=== PATIENT | female | born 2000 | race Caucasian/White ===

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

== ENCOUNTER 2023-04-07 14:16 | Inpatient (IN) ==
[2023-04-07 15:19] LABS: Alanine Aminotransferase 8 U/L (7-52); Albumin Globulin Ratio 1.1 (0.9-2); Albumin Level 3.1 gm/dl (3.4-5.0); Alkaline Phosphatase 212 U/L (34-104); Anion Gap 8 (3-11); Aspartate Aminotransferase 13 U/L (13-39); Bilirubin,Total 0.3 mg/dl (0.2-1.0); Blood Urea Nitrogen 6 mg/dl (6-23); Carbon Dioxide 21 mmol/L (21-32); Chloride 107 mmol/L (98-107); Est GFR (African American) > 150.0 ml/min; Est GFR (Non-African American) 143.2 ml/min; Globulin 2.9 gm/dl (2.5-4.0); Glucose 79 mg/dl (70-99(Fasting)); Potassium 3.6 mmol/L (3.5-5.1); Sodium 136 mmol/L (136-145)
[2023-04-07 15:24] LABS: Creatinine Urine Random 13.3 mg/dl; Protein Creatinine Ratio Urine 0.4 (0-0.2); Total Protein Urine Random 5.3 mg/dl (0-11.9)
[2023-04-07 15:46] LABS: Hematocrit (blood only) 29.4 % (37.0-47.0); Hemoglobin 9.4 g/dl (12.0-16.0); Mean Corpuscular Hemoglobin 26.4 pg (25.0-34.0); Mean Corpuscular Volume 82.6 fL (80.0-100.0); Mean Platelet Volume 9.9 fL (9.4-12.4); Platelet Count 331 K/uL (130-400); RDW Standard Deviation 45.6 fL (36.4-46.3); Red Blood Count 3.56 M/uL (4.20-5.40); White Blood Count 11.99 K/ul (4.8-10.8)
[2023-04-07] MEDS ORDERED: LIDOCAINE 1% LOCAL 20 ML VIAL INFIL PRN (17:35)
[2023-04-07] MEDS ORDERED: OXYTOCIN 30 UNITS/NSS 30 UNITS/500 ML BAG IV PRN (17:35)
--- NOTE | 2023-04-07 17:39 | History & Physical Report ---
Date of Service April 07, 2023 Assessment & Plan (1) Gestational diabetes mellitus (GDM) affecting , antepartum: (2) Preeclampsia: (3) with 37 weeks completed gestation: Plan Patient has demonstarted elevated blood pressure in the mild range and have sustained over 4 hours. She has a p/c ratio of 0.4. This allows me to give her a diagnosis of preeclampsia. Given that she is over 37 weeks, the recommendation is delivery as the risk of prematurity is outweighed by the risk of worsening disease/ecclampsia. Explained the situation to the patient and her support person who express understanding of the situation and plan. Given an unfavorable cervix. A cisse bulb was placed for cervical ripening and plan to start pitocin at around midnight. Fetus is category one. History of Present Illness Chief Complaint: elevated blood pressure Primary Care Provider: NO PCP Patient is a 22yowf with iup at 37 4/7 weeks . She presented to the office today without complaints. INitial blood pressure was 156/88 with a repeat in 10 min of 162/88. Was sent to labor and delivery for bp monitoring. INitial blood pressure here was 150s/90s. Labs all normal except pro/rn provider relations ratio of 0.4. She denies any s/s of pet. Notes no contractions/lof/vb. Notes good fm. Patient did have an elevated blood pressure on 03/06 of 144/86. During observation, she had an isolated blood pressure of 170/95 but mostly in the 140s/90s. complications as below. Of note, she was in the IUGR protocol when she had diagnosis of iugr made on a growth ultrasound done for a new diagnosis of GDM--efw 5% and AC 8%. This was at 30 weeks on 02/19. She remained in the protocol until ultrasound done 03/17 showed efw 11%, AC 30%. this was at 34 4/7 weeks. She had another dvp that was normal the following week. Her next growth us for GDM would have been at 38 weeks. and Delivery Plans Current every day Vaping Abnormal Anatomy US - mild to moderate dilation of proximal to mid ascending aorta *MFM consult (01/05/23 @ [facility] [place]) - rec echo - per peds cardio: OK for delivery at [facility] - peds cardio followup within first 2w of life *Growth US Q 4 wks, *Weekly NST's in 3rd trimester GDM w/28wk glucola *Begin monthly Growth US's IUGR - resolved at 34 wks *Twice weekly NST/DVP@Dx *Weeklyl doppler@Dx *Growth US Q4wk @Dx *Deliver [id number] (unless abnml flow) *Deliver 37wks (less than 3rd%) OB Labs: Blood Type O Positive 09/19/22 Antibody Screen NEGATIVE 09/19/22 Hemoglobin 9.2 g/dl (12.0-16.0) L 04/01/23 Hematocrit 28.5 % (37.0-47.0) L 04/01/23 Mean Corpuscular Volume 84.1 fL (80.0-100.0) 04/01/23 Platelet Count 296 K/uL (130-400) 04/01/23 Rubella IgG Antibody Non Immune (Immune) L 09/19/22 Rapid Plasma Reagin Nonreactive (Nonreactive) 09/19/22 Hepatitis B Surface Antigen. NON-REACTIVE (NON-REACTIVE) 09/19/22 Hepatitis C Antibody (EIA) NON-REACTIVE (NON-REACTIVE) 09/19/22 HIV (1&2) Ag and Ab Confirmation NON-REACTIVE (NON-REACTIVE) 09/19/22 Glucose 1 Hour 50 gm Load 163 mg/dl (70-130) H 02/05/23 OB Optional Labs: Chlamydia trachomatis RNA Not Detected (NotDetected) 09/19/22 Neisseria gonorrhoeae RNA Not Detected (NotDetected) 09/19/22 Thyroid Stimulating Hormone (TSH) 1.020 uIu/ml (0.510-4.91) 01/24/20 Labs Reviewed: cfdna-low risk--mln GBS pending and done today. Allergies Allergy/AdvReac Type Severity Reaction Status Date / Time No Known Drug Allergies Allergy Unknown Verified 04/07/23 13:13 Home Medications Medication Instructions Recorded Confirmed Type 21-iron fu-folic acid 1 tab PO DAILY 09/10/22 04/07/23 History [ Complete] acetone (urine) test (Ketone Urine #50 ea 02/19/23 04/07/23 Rx Test strips) blood sugar diagnostic (Imagine HealthTouch #150 ea 02/19/23 04/07/23 Rx Verio test strips) blood-glucose meter (OneTouch #1 ea 02/19/23 04/07/23 Rx Verio Reflect Meter) lancets 33 gauge #150 ea 02/19/23 04/07/23 Rx Patient History Medical History (Updated 04/07/23 @ 17:51 by Rupinder Pearce MD, FACOG) Menometrorrhagia Varicella vaccination Temporomandibular joint disorder Left side popping occasionally (states they removed her wisdom teeth thinking it would help- mild improvement per pt) ADD (attention deficit disorder) no meds History of obesity Amblyopia Anxiety no meds Astigmatism Surgical History History of dilatation and curettage History of wisdom tooth extraction Family History Sister Attention deficit hyperactivity disorder Mother Hypothyroidism Attention deficit hyperactivity disorder Grandmother Diabetes Father Hypertension Aunt Breast cancer maternal Grandmother (Paternal) Pure hypercholesterolemia Hypertension Other No family history of adverse response to anesthesia Denies family history of Ovarian cancer Colorectal cancer Uterine cancer Social History Smoking Status: Never smoker Tobacco Type: E-cigarettes / Vaping Cigarettes Per Day: vaps daily (advised); Second Hand Exposure: No; Do You Dip or Chew Tobacco: No; Tobacco Cessation Education Requested by Patient: No Hx Alcohol Use: No Hx Substance Use: No Preferred Language: [place] Communication Ability: Effective Visual Impairment: No Limitations Real Estate Legal Secretary Required: No Beliefs That Will Affect Care: None marital status: Single marital status details: destinee Espino (23) [phone] Current Living Situation: Parent Current Living Situation Comment: lives with fob, roomate, dog, cats-fob changing litter current occupational status: unemployed current occupation: not in school Other Information That Helps Us Care for You: No Feels Safe at Home: Yes Safety Concerns: Feels Safe At This Time Assistive Devices: Glasses OB History sab x 2 with one D&E 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 speculum placed and cx visualized. cisse placed through cervix and inflated with 30cc sterile water. Tolerated well. Results & Data Vital Signs (Past 12 Hours) Vital Signs Temp Pulse Resp BP 04/07/23 17:31 85 04/07/23 17:31 135/94 04/07/23 16:49 82 04/07/23 16:49 137/91 04/07/23 16:13 73 04/07/23 16:13 133/88 04/07/23 15:42 86 04/07/23 15:42 170/95 H 04/07/23 14:55 75 04/07/23 14:55 152/92 H 04/07/23 14:31 36.6 C 18 04/07/23 14:27 81 142/86 H Coding Level of Care Code None Diagnoses Gestational diabetes mellitus (GDM) affecting , antepartum O24.419 Pre-eclampsia in third trimester O14.93 Trimester: third trimester with 37 weeks completed gestation Z3A.37 (2) Preeclampsia Trimester: third trimester Qualified Code(s): O14.93 - Unspecified pre- eclampsia, third trimester
[2023-04-07] MEDS ORDERED: SODIUM CHLORIDE 0.9% 250 ML IV PRN (19:27)
[2023-04-07] MEDS: BUTORPHANOL TARTRATE 1 MG/ML VIAL IV ONE (21:02)
[2023-04-08] MEDS ORDERED: NALOXONE HCL 0.4 MG/1 ML VIAL/CARP IV PRN ×2 (00:12→19:23)
[2023-04-08] MEDS ORDERED: NALBUPHINE HCL 5 MG in SYRINGE 0 ML IV PRN ×2 (00:12→19:23)
[2023-04-08] MEDS ORDERED: ROPIVACAINE 0.5% PF 5 MG/ML 20 ML VIAL EPI PRN (00:12)
[2023-04-08] MEDS ORDERED: NALOXONE HCL 1 MG in SODIUM CHLORIDE 0.9% 1,000 ML IV PRN ×2 (00:12→19:23)
[2023-04-08] MEDS ORDERED: fentaNYL citrate PF 100 MCG/2 ML VIAL EPI PRN (00:12)
[2023-04-08] MEDS ORDERED: LIDOCAINE 2% MPF LOCAL 5 ML VIAL EPI PRN (00:12)
[2023-04-08] MEDS ORDERED: ePHEDrine sulfate 50 MG/ML AMP IV PRN ×2 (00:12→19:23)
[2023-04-08] MEDS ORDERED: BUPIVACAINE 0.25% PF 30 ML VIAL EPI PRN (00:12)
[2023-04-08] MEDS ORDERED: SODIUM CHLORIDE 0.9% PF INJ 10 ML VIAL EPI PRN (00:12)
[2023-04-08] MEDS ORDERED: diphenhydrAMINE 50 MG/ML VIAL IV PRN ×2 (00:12→19:23)
--- NOTE | 2023-04-08 00:12 | Anesthesiology Consultation ---
Date of Service April 08, 2023 Assessment & Plan (1) Encounter for pre-operative examination: Chart Review Chart Review: Patient NOT seen in Pre Admission Testing and Acceptable Risk for Labor Epidural Consults Requested none History Height/Weight Height: 5 ft Weight: 76.204 kg Allergies Allergy/AdvReac Type Severity Reaction Status Date / Time No Known Drug Allergies Allergy Unknown Verified 04/07/23 13:13 Medications Home Medications Medication Instructions Recorded Confirmed Last Taken 21-iron fu-folic acid 1 tab PO DAILY 09/10/22 04/07/23 04/07/23 08:00 [ Complete] acetone (urine) test (Ketone Urine #50 ea 02/19/23 04/07/23 Unknown Test strips) blood sugar diagnostic (OneTouch #150 ea 02/19/23 04/07/23 Unknown Verio test strips) blood-glucose meter (OneTouch #1 ea 02/19/23 04/07/23 Unknown Verio Reflect Meter) lancets 33 gauge #150 ea 02/19/23 04/07/23 Unknown Past Medical History Medical History Menometrorrhagia Varicella vaccination Temporomandibular joint disorder Left side popping occasionally (states they removed her wisdom teeth thinking it would help- mild improvement per pt) ADD (attention deficit disorder) no meds History of obesity Amblyopia Anxiety no meds Astigmatism Past Family History Family History Sister Attention deficit hyperactivity disorder Mother Hypothyroidism Attention deficit hyperactivity disorder Grandmother Diabetes Father Hypertension Aunt Breast cancer maternal Grandmother (Paternal) Pure hypercholesterolemia Hypertension Other No family history of adverse response to anesthesia Denies family history of Ovarian cancer Colorectal cancer Uterine cancer Past Surgical History Surgical History History of dilatation and curettage History of wisdom tooth extraction Social History Smoking Status: Never smoker tobacco type: e-cigarettes Smoking cigarettes per day: vaps daily (advised) Do You Dip or Chew Tobacco: No Hx Alcohol Use: No Hx Substance Use: No substance use type: does not use Physical Exam Vital Signs Last Vital Signs Temp 98.2 F 04/07/23 22:30 Pulse 89 04/07/23 23:52 Resp 16 04/07/23 22:30 BP 115/80 04/07/23 22:34 Pulse Ox 98 04/07/23 23:52 O2 Del Method Room Air 04/07/23 19:10 Testing Laboratory Results 04/07/23 14:48 04/07/23 14:48 Blood Type O Positive 04/07/23 14:48 Antibody Screen NEGATIVE 04/07/23 14:48 04/07/23 04/07/23 04/07/23 22:36 20:35 18:28 POC Glucose 93 99 96
[2023-04-08] MEDS: PENICILLIN GK 6 MU in DEXTROSE 5% 250 ML IV STA (00:13)
[2023-04-08] MEDS: LACTATED RINGER'S 1,000 ML IV PRN (00:13)
[2023-04-08] MEDS: OXYTOCIN 30 UNITS/NSS 30 UNITS/500 ML BAG IV PRN (00:37)
[2023-04-08] MEDS: BUPIVACAINE 0.25% PF 30 ML VIAL EPI STA (00:59)
[2023-04-08] MEDS: LIDOCAINE 2%/EPINEPHRINE 1:200,000 20 ML PF EPI STA (00:59)
[2023-04-08] MEDS: fentANYL 2 MCG/ML BUPIVacaine 0.125%-NSS 100ML BAG ONE (01:01)
[2023-04-08] MEDS: PENICILLIN GK 3 MU in DEXTROSE 5% 100 ML IV PRN (04:27)
--- NOTE | 2023-04-08 06:33 | Labor Progress Brief Note ---
Date of Service April 08, 2023 Subjective comfortable with epidural Events overnight--got epidural, arom for clear fluid. Nursing checked at at 4am and 4cm. Assessment & Plan (1) with 37 weeks completed gestation: (2) Preeclampsia: Trimester: third trimester Qualified Code(s): O14.93 - Unspecified pre-eclampsia, third trimester Plan continue current management. fetus category one. may need iupc at some point. Admission and Anticipated Discharge Date Admission Date: April 07, 2023 Physical Exam Physical Exam: cx--/-2 toco--dysfunctional labor patterns. she is 2-4min, with some areas of spacing, pit at 15 efm--130s with mod varbility, accels to 160s, no decels Results & Data Vital Signs (Past 12 Hours) Vital Signs Temp Pulse Resp BP Pulse Ox O2 Del Method 04/08/23 06:29 74 100 04/08/23 06:24 84 93 04/08/23 06:19 93 H 93 04/08/23 06:15 80 122/73 04/08/23 06:14 80 93 04/08/23 06:09 89 93 04/08/23 06:04 75 93 04/08/23 06:00 75 16 125/76 04/08/23 05:59 86 92 04/08/23 05:54 82 92 04/08/23 05:49 87 93 04/08/23 05:45 74 114/76 04/08/23 05:44 81 93 04/08/23 05:39 83 92 04/08/23 05:34 80 94 04/08/23 05:31 36.8 C 78 16 120/66 04/08/23 05:29 79 94 04/08/23 05:24 79 94 04/08/23 05:19 77 95 04/08/23 05:15 85 126/71 04/08/23 05:14 81 97 04/08/23 05:09 85 98 04/08/23 05:04 88 99 04/08/23 05:01 98 H 135/88 04/08/23 05:00 18 04/08/23 05:00 18 04/08/23 04:59 70 100 04/08/23 04:54 82 100 04/08/23 04:49 104 H 99 04/08/23 04:46 151 H 142/96 H 01/31/24 04:44 136 H 98 04/08/23 04:39 85 98 04/08/23 04:34 71 97 04/08/23 04:30 75 18 120/68 04/08/23 04:29 88 98 04/08/23 04:24 90 99 04/08/23 04:19 78 98 04/08/23 04:16 78 129/76 04/08/23 04:14 91 H 97 04/08/23 04:09 69 97 04/08/23 04:04 88 96 04/08/23 04:00 108 H 16 133/88 04/08/23 03:59 109 H 98 04/08/23 03:54 100 H 98 04/08/23 03:49 93 H 99 04/08/23 03:45 93 H 134/83 04/08/23 03:44 88 97 04/08/23 03:39 142 H 99 04/08/23 03:34 89 98 04/08/23 03:30 36.4 C L 65 127/76 04/08/23 03:29 97 H 98 04/08/23 03:24 87 97 04/08/23 03:19 91 H 98 04/08/23 03:15 72 128/74 04/08/23 03:14 88 96 04/08/23 03:09 100 H 96 04/08/23 03:04 104 H 96 04/08/23 03:00 67 118/62 04/08/23 02:59 93 H 98 04/08/23 02:54 92 H 98 04/08/23 02:49 109 H 98 04/08/23 02:45 82 130/80 04/08/23 02:44 82 98 04/08/23 02:39 90 96 04/08/23 02:34 94 H 98 04/08/23 02:30 73 122/80 04/08/23 02:29 89 99 04/08/23 02:26 107 H 82 L 04/08/23 02:24 79 97 04/08/23 02:19 90 99 04/08/23 02:16 83 133/88 04/08/23 02:14 89 99 04/08/23 02:09 84 98 04/08/23 02:04 119 H 99 04/08/23 02:00 88 16 133/93 04/08/23 01:59 71 98 04/08/23 01:54 101 H 93 04/08/23 01:49 67 98 04/08/23 01:45 78 138/84 04/08/23 01:44 83 99 04/08/23 01:39 95 H 98 04/08/23 01:34 102 H 99 04/08/23 01:29 36.7 C 105 H 142/92 H 99 04/08/23 01:24 93 H 99 04/08/23 01:23 75 142/85 H 04/08/23 01:19 117 H 98 04/08/23 01:18 96 H 135/84 04/08/23 01:14 91 H 134/81 98 04/08/23 01:09 85 98 04/08/23 01:08 103 H 136/86 04/08/23 01:04 103 H 96 04/08/23 01:02 84 130/70 04/08/23 01:00 110 H 129/77 04/08/23 00:59 99 04/08/23 00:59 71 04/08/23 00:59 70 138/85 04/08/23 00:57 73 145/87 H 04/08/23 00:55 85 168/87 H 04/08/23 00:54 90 100 04/08/23 00:23 36.5 C 04/08/23 00:22 82 135/90 04/07/23 23:52 98 04/07/23 23:52 89 04/07/23 23:47 97 04/07/23 23:47 79 04/07/23 23:42 98 04/07/23 23:42 86 04/07/23 23:37 98 04/07/23 23:37 99 H 04/07/23 23:32 95 04/07/23 23:32 87 04/07/23 23:27 97 04/07/23 23:27 75 04/07/23 23:22 97 04/07/23 23:22 76 04/07/23 23:17 88 L 04/07/23 23:17 78 04/07/23 23:12 99 04/07/23 23:12 86 04/07/23 23:07 97 04/07/23 23:07 81 04/07/23 23:02 97 04/07/23 23:02 95 H 04/07/23 22:57 97 04/07/23 22:57 82 04/07/23 22:52 97 04/07/23 22:52 86 04/07/23 22:47 96 04/07/23 22:47 83 04/07/23 22:42 96 04/07/23 22:42 82 04/07/23 22:37 96 04/07/23 22:37 84 04/07/23 22:34 76 04/07/23 22:34 115/80 04/07/23 22:32 95 04/07/23 22:32 95 H 04/07/23 22:30 16 04/07/23 22:30 36.8 C 16 04/07/23 22:27 94 04/07/23 22:27 79 04/07/23 22:22 95 04/07/23 22:22 96 H 04/07/23 22:17 97 04/07/23 22:17 67 04/07/23 22:12 95 04/07/23 22:12 75 04/07/23 22:07 95 04/07/23 22:07 74 04/07/23 22:02 96 04/07/23 22:02 69 04/07/23 21:57 96 04/07/23 21:57 76 04/07/23 21:52 96 04/07/23 21:52 69 04/07/23 21:47 95 04/07/23 21:47 70 04/07/23 21:42 96 04/07/23 21:42 74 04/07/23 21:37 94 04/07/23 21:37 73 04/07/23 21:32 95 04/07/23 21:32 70 04/07/23 21:27 95 04/07/23 21:27 80 04/07/23 21:22 95 04/07/23 21:22 66 04/07/23 21:17 96 04/07/23 21:17 86 04/07/23 21:12 95 04/07/23 21:12 82 04/07/23 21:07 94 04/07/23 21:07 69 04/07/23 21:06 93 04/07/23 21:06 79 04/07/23 21:02 99 04/07/23 21:02 89 04/07/23 20:35 70 04/07/23 20:35 140/70 04/07/23 19:30 77 04/07/23 19:30 134/93 04/07/23 19:10 Room Air 04/07/23 19:10 18 04/07/23 19:10 36.6 C 18 04/07/23 19:00 63 04/07/23 19:00 133/80 Coding Level of Care Code None Diagnoses with 37 weeks completed gestation Z3A.37 Pre-eclampsia in third trimester O14.93 Trimester: third trimester
[2023-04-08] MEDS: fentaNYL citrate PF 100 MCG/2 ML VIAL EPI STA (07:37)
[2023-04-08] MEDS: fentaNYL citrate PF 100 MCG/2 ML VIAL ONE (07:37)
[2023-04-08] MEDS: SODIUM CHLORIDE 0.9% PF INJ 10 ML VIAL EPI STA (07:37)
[2023-04-08] MEDS: ePHEDrine sulfate 50 MG/ML AMP ONE (07:37)
[2023-04-08] MEDS: BUPIVACAINE 0.25% PF 30 ML VIAL ONE (07:38)
[2023-04-08] MEDS: SODIUM CHLORIDE 0.9% PF INJ 10 ML VIAL ONE (07:38)
[2023-04-08] MEDS: LIDOCAINE 2%/EPINEPHRINE 1:200,000 20 ML PF ONE (07:38)
[2023-04-08] MEDS: ONDANSETRON INJ 2 MG/ML 2 ML VIAL IV PRN ×2 (09:05→21:46)
[2023-04-08] MEDS: fentANYL 2 MCG/ML BUPIVacaine 0.125%-NSS 100ML BAG EPI PRN (10:22)
--- NOTE | 2023-04-08 10:40 | Labor Progress Brief Note ---
Date of Service April 08, 2023 Subjective very intermittently nauseous, last bp severe but while pt actively vomiting Assessment & Plan (1) with 37 weeks completed gestation: (2) Preeclampsia: Trimester: third trimester Qualified Code(s): O14.93 - Unspecified pre-eclampsia, third trimester Plan 22 yo G1 at 37 5/7 [facility] admitted w/ pre-eclampsia w/o severe features VSS, normal to mild range. This severe range was while actively vomiting Fetus cat 1 Labor - pit at 17, IUPC placed. SVE 4-5, still fairly thick to me. Will increase pit per IUPC, continue repositioning GBS pending, pcn was started last evening epidural in place Admission and Anticipated Discharge Date Admission Date: April 07, 2023 Physical Exam Genitourinary: Manual OB Exam: + cervical dilation 5 cm, + cervical effacement 50% and + station -2 OB Exam Monitor Tracing: + external FHT monitor used, + intra-uterine pressure catheter used (IUPC placed) and + category I Results & Data Vital Signs (Past 12 Hours) Vital Signs Temp Pulse Resp BP Pulse Ox 04/08/23 10:34 68 99 04/08/23 10:30 136 H 166/126 H 04/08/23 10:29 109 H 99 04/08/23 10:24 70 97 04/08/23 10:19 72 99 04/08/23 10:15 62 154/100 H 04/08/23 10:14 78 100 04/08/23 10:09 82 98 04/08/23 10:04 72 96 04/08/23 10:00 72 18 151/95 H 04/08/23 09:59 75 98 04/08/23 09:54 66 98 04/08/23 09:49 68 100 04/08/23 09:45 63 146/94 H 04/08/23 09:44 79 96 04/08/23 09:39 73 97 04/08/23 09:34 76 95 04/08/23 09:30 65 20 139/88 04/08/23 09:29 67 97 04/08/23 09:24 68 99 04/08/23 09:19 65 98 04/08/23 09:15 68 143/85 H 04/08/23 09:14 66 98 04/08/23 09:09 69 98 04/08/23 09:04 98 H 98 04/08/23 09:00 97.9 F 20 04/08/23 08:59 76 99 04/08/23 08:54 76 100 04/08/23 08:49 77 99 04/08/23 08:46 108 H 143/98 H 04/08/23 08:44 135 H 97 04/08/23 08:39 88 97 04/08/23 08:34 88 99 04/08/23 08:30 20 04/08/23 08:30 73 141/98 H 04/08/23 08:29 74 98 04/08/23 08:24 75 98 04/08/23 08:19 86 98 04/08/23 08:15 67 136/91 04/08/23 08:14 81 97 04/08/23 08:09 85 97 04/08/23 08:04 96 H 100 04/08/23 08:00 82 20 154/95 H 04/08/23 07:59 99 H 99 04/08/23 07:54 77 99 04/08/23 07:49 83 98 04/08/23 07:45 82 148/92 H 04/08/23 07:44 85 99 04/08/23 07:39 100 H 99 04/08/23 07:34 84 97 04/08/23 07:31 67 128/86 04/08/23 07:30 18 04/08/23 07:29 75 97 04/08/23 07:24 69 96 04/08/23 07:19 74 97 04/08/23 07:15 80 137/91 04/08/23 07:14 79 96 04/08/23 07:09 80 98 04/08/23 07:04 74 99 04/08/23 07:00 97.7 F 20 04/08/23 07:00 16 04/08/23 07:00 16 04/08/23 06:59 68 96 04/08/23 06:54 72 99 04/08/23 06:49 74 97 04/08/23 06:46 62 140/89 04/08/23 06:44 73 96 04/08/23 06:39 86 96 04/08/23 06:34 84 96 04/08/23 06:30 71 18 143/93 H 04/08/23 06:29 74 100 04/08/23 06:24 84 93 04/08/23 06:19 93 H 93 04/08/23 06:15 80 122/73 04/08/23 06:14 80 93 04/08/23 06:09 89 93 04/08/23 06:04 75 93 04/08/23 06:00 75 16 125/76 04/08/23 05:59 86 92 04/08/23 05:54 82 92 04/08/23 05:49 87 93 04/08/23 05:45 74 114/76 04/08/23 05:44 81 93 04/08/23 05:39 83 92 04/08/23 05:34 80 94 04/08/23 05:31 98.2 F 78 16 120/66 04/08/23 05:29 79 94 04/08/23 05:24 79 94 04/08/23 05:19 77 95 04/08/23 05:15 85 126/71 04/08/23 05:14 81 97 04/08/23 05:09 85 98 04/08/23 05:04 88 99 04/08/23 05:01 98 H 135/88 04/08/23 05:00 18 04/08/23 05:00 18 04/08/23 04:59 70 100 04/08/23 04:54 82 100 04/08/23 04:49 104 H 99 04/08/23 04:46 151 H 142/96 H 04/08/23 04:44 136 H 98 04/08/23 04:39 85 98 04/08/23 04:34 71 97 04/08/23 04:30 75 18 120/68 04/08/23 04:29 88 98 04/08/23 04:24 90 99 04/08/23 04:19 78 98 04/08/23 04:16 78 129/76 04/08/23 04:14 91 H 97 04/08/23 04:09 69 97 04/08/23 04:04 88 96 04/08/23 04:00 108 H 16 133/88 04/08/23 03:59 109 H 98 04/08/23 03:54 100 H 98 04/08/23 03:49 93 H 99 04/08/23 03:45 93 H 134/83 04/08/23 03:44 88 97 04/08/23 03:39 142 H 99 04/08/23 03:34 89 98 04/08/23 03:30 97.5 F L 65 127/76 04/08/23 03:29 97 H 98 04/08/23 03:24 87 97 04/08/23 03:19 91 H 98 04/08/23 03:15 72 128/74 04/08/23 03:14 88 96 04/08/23 03:09 100 H 96 04/08/23 03:04 104 H 96 04/08/23 03:00 67 118/62 04/08/23 02:59 93 H 98 04/08/23 02:54 92 H 98 04/08/23 02:49 109 H 98 04/08/23 02:45 82 130/80 04/08/23 02:44 82 98 04/08/23 02:39 90 96 04/08/23 02:34 94 H 98 04/08/23 02:30 73 122/80 04/08/23 02:29 89 99 04/08/23 02:26 107 H 82 L 04/08/23 02:24 79 97 04/08/23 02:19 90 99 04/08/23 02:16 83 133/88 04/08/23 02:14 89 99 04/08/23 02:09 84 98 04/08/23 02:04 119 H 99 04/08/23 02:00 88 16 133/93 04/08/23 01:59 71 98 04/08/23 01:54 101 H 93 04/08/23 01:49 67 98 04/08/23 01:45 78 138/84 04/08/23 01:44 83 99 04/08/23 01:39 95 H 98 04/08/23 01:34 102 H 99 04/08/23 01:29 98.1 F 105 H 142/92 H 99 04/08/23 01:24 93 H 99 04/08/23 01:23 75 142/85 H 04/08/23 01:19 117 H 98 04/08/23 01:18 96 H 135/84 04/08/23 01:14 91 H 134/81 98 04/08/23 01:09 85 98 04/08/23 01:08 103 H 136/86 04/08/23 01:04 103 H 96 04/08/23 01:02 84 130/70 04/08/23 01:00 110 H 129/77 04/08/23 00:59 99 04/08/23 00:59 71 04/08/23 00:59 70 138/85 04/08/23 00:57 73 145/87 H 04/08/23 00:55 85 168/87 H 04/08/23 00:54 90 100 04/08/23 00:23 97.7 F 04/08/23 00:22 82 135/90 04/07/23 23:52 98 04/07/23 23:52 89 04/07/23 23:47 97 04/07/23 23:47 79 04/07/23 23:42 98 04/07/23 23:42 86 04/07/23 23:37 98 04/07/23 23:37 99 H 04/07/23 23:32 95 04/07/23 23:32 87 04/07/23 23:27 97 04/07/23 23:27 75 04/07/23 23:22 97 04/07/23 23:22 76 04/07/23 23:17 88 L 04/07/23 23:17 78 04/07/23 23:12 99 04/07/23 23:12 86 04/07/23 23:07 97 04/07/23 23:07 81 04/07/23 23:02 97 04/07/23 23:02 95 H 04/07/23 22:57 97 04/07/23 22:57 82 04/07/23 22:52 97 04/07/23 22:52 86 04/07/23 22:47 96 04/07/23 22:47 83 04/07/23 22:42 96 04/07/23 22:42 82 Coding Level of Care Code None Diagnoses with 37 weeks completed gestation Z3A.37 Pre-eclampsia in third trimester O14.93 Trimester: third trimester
[2023-04-08] MEDS: CALCIUM CARBONATE 500 MG CHEWABLE TAB PO PRN (11:27)
--- NOTE | 2023-04-08 14:24 | Labor Progress Brief Note ---
Date of Service April 08, 2023 Subjective Resting w/ epidural Assessment & Plan (1) with 37 weeks completed gestation: (2) Preeclampsia: Trimester: third trimester Qualified Code(s): O14.93 - Unspecified pre-eclampsia, third trimester Plan 22 yo G1 at 37 5/7 [facility] w/ pre-eclampsia w/o severe features VSS, normal to mild range. Fetus cat 1 Labor - pit at 24 w/ IUPC in. Nursing noted they had just checked as pt was noting more pain and they felt a forebag that spontaneously ruptured during check. On my check, good 5cm, more midline and slightly more effaced - feels like progress to me. Will continue induction, hopefully this rupture of forebag helps with progress as well GBS pending, pcn was started last evening epidural in place Admission and Anticipated Discharge Date Admission Date: April 07, 2023 Physical Exam Genitourinary: Manual OB Exam: + cervical dilation 5 cm, + cervical effacement 60% and + station -2 OB Exam Monitor Tracing: + external FHT monitor used, + intra-uterine pressure catheter used (just becoming adequate) and + category I Results & Data Vital Signs (Past 12 Hours) Vital Signs Temp Pulse Resp BP Pulse Ox 04/08/23 14:18 83 98 04/08/23 14:15 88 142/75 H 04/08/23 14:13 76 100 04/08/23 14:07 80 98 04/08/23 14:02 74 98 04/08/23 14:01 78 156/89 H 04/08/23 14:00 20 04/08/23 14:00 20 04/08/23 13:57 72 98 04/08/23 13:52 80 99 04/08/23 13:47 133 H 97 04/08/23 13:45 134 H 158/101 H 04/08/23 13:42 85 100 04/08/23 13:37 68 99 04/08/23 13:32 76 98 04/08/23 13:31 63 141/82 H 04/08/23 13:30 20 04/08/23 13:30 97.5 F L 20 04/08/23 13:27 74 99 04/08/23 13:22 77 100 04/08/23 13:15 62 131/77 04/08/23 13:14 80 98 04/08/23 13:09 62 98 04/08/23 13:04 77 99 04/08/23 13:00 74 18 137/82 04/08/23 12:59 68 100 04/08/23 12:54 66 99 04/08/23 12:49 75 99 04/08/23 12:45 80 140/89 04/08/23 12:44 73 96 04/08/23 12:39 70 100 04/08/23 12:34 72 100 04/08/23 12:30 18 04/08/23 12:30 126 H 142/93 H 04/08/23 12:29 124 H 97 04/08/23 12:24 91 H 97 04/08/23 12:19 67 100 04/08/23 12:15 61 137/71 04/08/23 12:14 93 H 99 04/08/23 12:09 73 95 04/08/23 12:04 65 96 04/08/23 12:00 20 04/08/23 12:00 66 142/73 H 04/08/23 11:59 65 95 04/08/23 11:54 91 H 94 04/08/23 11:49 77 95 04/08/23 11:45 66 132/70 04/08/23 11:44 67 98 04/08/23 11:39 67 99 04/08/23 11:34 65 99 04/08/23 11:30 83 18 137/78 04/08/23 11:29 87 100 04/08/23 11:24 81 100 04/08/23 11:19 84 99 04/08/23 11:16 75 133/93 04/08/23 11:14 75 99 04/08/23 11:09 66 100 04/08/23 11:04 78 98 04/08/23 11:01 71 152/84 H 04/08/23 11:00 18 04/08/23 11:00 98.6 F 18 04/08/23 10:59 73 98 04/08/23 10:54 119 H 98 04/08/23 10:49 67 96 04/08/23 10:45 80 147/83 H 04/08/23 10:44 87 98 04/08/23 10:39 63 97 04/08/23 10:34 68 99 04/08/23 10:30 136 H 20 166/126 H 04/08/23 10:29 109 H 99 04/08/23 10:24 70 97 04/08/23 10:19 72 99 04/08/23 10:15 62 154/100 H 04/08/23 10:14 78 100 04/08/23 10:09 82 98 04/08/23 10:04 72 96 04/08/23 10:00 72 18 151/95 H 04/08/23 09:59 75 98 04/08/23 09:54 66 98 04/08/23 09:49 68 100 04/08/23 09:45 63 146/94 H 04/08/23 09:44 79 96 04/08/23 09:39 73 97 04/08/23 09:34 76 95 04/08/23 09:30 65 20 139/88 04/08/23 09:29 67 97 04/08/23 09:24 68 99 04/08/23 09:19 65 98 04/08/23 09:15 68 143/85 H 04/08/23 09:14 66 98 04/08/23 09:09 69 98 04/08/23 09:04 98 H 98 04/08/23 09:00 97.9 F 20 04/08/23 08:59 76 99 04/08/23 08:54 76 100 04/08/23 08:49 77 99 04/08/23 08:46 108 H 143/98 H 04/08/23 08:44 135 H 97 04/08/23 08:39 88 97 04/08/23 08:34 88 99 04/08/23 08:30 20 04/08/23 08:30 73 141/98 H 04/08/23 08:29 74 98 04/08/23 08:24 75 98 04/08/23 08:19 86 98 04/08/23 08:15 67 136/91 04/08/23 08:14 81 97 04/08/23 08:09 85 97 04/08/23 08:04 96 H 100 04/08/23 08:00 82 20 154/95 H 04/08/23 07:59 99 H 99 04/08/23 07:54 77 99 04/08/23 07:49 83 98 04/08/23 07:45 82 148/92 H 04/08/23 07:44 85 99 04/08/23 07:39 100 H 99 04/08/23 07:34 84 97 04/08/23 07:31 67 128/86 04/08/23 07:30 18 04/08/23 07:29 75 97 04/08/23 07:24 69 96 04/08/23 07:19 74 97 04/08/23 07:15 80 137/91 04/08/23 07:14 79 96 04/08/23 07:09 80 98 04/08/23 07:04 74 99 04/08/23 07:00 97.7 F 20 04/08/23 07:00 16 04/08/23 07:00 16 04/08/23 06:59 68 96 04/08/23 06:54 72 99 04/08/23 06:49 74 97 04/08/23 06:46 62 140/89 04/08/23 06:44 73 96 04/08/23 06:39 86 96 04/08/23 06:34 84 96 04/08/23 06:30 71 18 143/93 H 04/08/23 06:29 74 100 04/08/23 06:24 84 93 04/08/23 06:19 93 H 93 04/08/23 06:15 80 122/73 04/08/23 06:14 80 93 04/08/23 06:09 89 93 04/08/23 06:04 75 93 04/08/23 06:00 75 16 125/76 04/08/23 05:59 86 92 04/08/23 05:54 82 92 04/08/23 05:49 87 93 04/08/23 05:45 74 114/76 04/08/23 05:44 81 93 04/08/23 05:39 83 92 04/08/23 05:34 80 94 04/08/23 05:31 98.2 F 78 16 120/66 04/08/23 05:29 79 94 04/08/23 05:24 79 94 04/08/23 05:19 77 95 04/08/23 05:15 85 126/71 04/08/23 05:14 81 97 04/08/23 05:09 85 98 04/08/23 05:04 88 99 04/08/23 05:01 98 H 135/88 04/08/23 05:00 18 04/08/23 05:00 18 04/08/23 04:59 70 100 04/08/23 04:54 82 100 04/08/23 04:49 104 H 99 04/08/23 04:46 151 H 142/96 H 04/08/23 04:44 136 H 98 04/08/23 04:39 85 98 04/08/23 04:34 71 97 04/08/23 04:30 75 18 120/68 04/08/23 04:29 88 98 04/08/23 04:24 90 99 04/08/23 04:19 78 98 04/08/23 04:16 78 129/76 04/08/23 04:14 91 H 97 04/08/23 04:09 69 97 04/08/23 04:04 88 96 04/08/23 04:00 108 H 16 133/88 04/08/23 03:59 109 H 98 04/08/23 03:54 100 H 98 04/08/23 03:49 93 H 99 04/08/23 03:45 93 H 134/83 04/08/23 03:44 88 97 04/08/23 03:39 142 H 99 04/08/23 03:34 89 98 04/08/23 03:30 97.5 F L 65 127/76 04/08/23 03:29 97 H 98 04/08/23 03:24 87 97 04/08/23 03:19 91 H 98 04/08/23 03:15 72 128/74 04/08/23 03:14 88 96 04/08/23 03:09 100 H 96 04/08/23 03:04 104 H 96 04/08/23 03:00 67 118/62 04/08/23 02:59 93 H 98 04/08/23 02:54 92 H 98 04/08/23 02:49 109 H 98 04/08/23 02:45 82 130/80 04/08/23 02:44 82 98 04/08/23 02:39 90 96 04/08/23 02:34 94 H 98 04/08/23 02:30 73 122/80 04/08/23 02:29 89 99 04/08/23 02:26 107 H 82 L 04/08/23 02:24 79 97 Coding Level of Care Code None Diagnoses with 37 weeks completed gestation Z3A.37 Pre-eclampsia in third trimester O14.93 Trimester: third trimester
--- NOTE | 2023-04-08 16:19 | Labor Progress Brief Note ---
Date of Service April 08, 2023 Subjective Resting w/ epidural Assessment & Plan (1) with 37 weeks completed gestation: (2) Preeclampsia: Trimester: third trimester Qualified Code(s): O14.93 - Unspecified pre-eclampsia, third trimester Plan 22 yo G1 at 37 5/7 [facility] admitted w/ pre-eclampsia w/o severe features VSS, normal to mild range. Fetus cat 1 Labor - pit at 24 w/ IUPC in. Cervix a little thinner and slightly lower station. IUPC in place, will increase pit. Has a better ctx pattern, more consistently adequate GBS pending, pcn was started last evening epidural in place Admission and Anticipated Discharge Date Admission Date: April 07, 2023 Physical Exam Genitourinary: Manual OB Exam: + cervical dilation 5 cm, + cervical effacement 70% and + station -1 OB Exam Monitor Tracing: + external FHT monitor used, + intra-uterine pressure catheter used (q3, adequate) and + category I Results & Data Vital Signs (Past 12 Hours) Vital Signs Temp Pulse Resp BP Pulse Ox 04/08/23 16:16 85 142/70 H 04/08/23 16:13 83 100 04/08/23 16:08 68 97 04/08/23 16:03 68 100 04/08/23 16:00 78 134/85 04/08/23 15:58 93 H 97 04/08/23 15:53 81 83 L 04/08/23 15:48 73 99 04/08/23 15:43 82 94 04/08/23 15:41 79 85 L 04/08/23 15:38 74 97 04/08/23 15:33 66 99 04/08/23 15:31 65 144/81 H 04/08/23 15:28 76 96 04/08/23 15:23 102 H 99 04/08/23 15:18 103 H 99 04/08/23 15:16 74 135/76 04/08/23 15:13 67 100 04/08/23 15:08 79 98 04/08/23 15:03 64 100 04/08/23 15:00 97.7 F 66 20 136/78 04/08/23 14:58 63 99 04/08/23 14:53 81 98 04/08/23 14:48 62 98 04/08/23 14:45 87 L 04/08/23 14:45 84 04/08/23 14:45 71 131/87 04/08/23 14:43 70 99 04/08/23 14:38 72 97 04/08/23 14:33 71 97 04/08/23 14:31 75 131/89 04/08/23 14:30 18 04/08/23 14:28 68 100 04/08/23 14:23 71 99 04/08/23 14:18 83 98 04/08/23 14:15 88 142/75 H 04/08/23 14:13 76 100 04/08/23 14:07 80 98 04/08/23 14:02 74 98 04/08/23 14:01 78 156/89 H 04/08/23 14:00 20 04/08/23 14:00 20 04/08/23 13:57 72 98 04/08/23 13:52 80 99 04/08/23 13:47 133 H 97 04/08/23 13:45 134 H 158/101 H 04/08/23 13:42 85 100 04/08/23 13:37 68 99 04/08/23 13:32 76 98 04/08/23 13:31 63 141/82 H 04/08/23 13:30 20 04/08/23 13:30 97.5 F L 20 04/08/23 13:27 74 99 04/08/23 13:22 77 100 04/08/23 13:15 62 131/77 04/08/23 13:14 80 98 04/08/23 13:09 62 98 04/08/23 13:04 77 99 04/08/23 13:00 74 18 137/82 04/08/23 12:59 68 100 04/08/23 12:54 66 99 04/08/23 12:49 75 99 04/08/23 12:45 80 140/89 04/08/23 12:44 73 96 04/08/23 12:39 70 100 04/08/23 12:34 72 100 04/08/23 12:30 18 04/08/23 12:30 126 H 142/93 H 04/08/23 12:29 124 H 97 04/08/23 12:24 91 H 97 04/08/23 12:19 67 100 04/08/23 12:15 61 137/71 04/08/23 12:14 93 H 99 04/08/23 12:09 73 95 04/08/23 12:04 65 96 04/08/23 12:00 20 04/08/23 12:00 66 142/73 H 04/08/23 11:59 65 95 04/08/23 11:54 91 H 94 04/08/23 11:49 77 95 04/08/23 11:45 66 132/70 04/08/23 11:44 67 98 04/08/23 11:39 67 99 04/08/23 11:34 65 99 04/08/23 11:30 83 18 137/78 04/08/23 11:29 87 100 04/08/23 11:24 81 100 04/08/23 11:19 84 99 04/08/23 11:16 75 133/93 04/08/23 11:14 75 99 04/08/23 11:09 66 100 04/08/23 11:04 78 98 04/08/23 11:01 71 152/84 H 04/08/23 11:00 18 04/08/23 11:00 98.6 F 18 04/08/23 10:59 73 98 04/08/23 10:54 119 H 98 04/08/23 10:49 67 96 04/08/23 10:45 80 147/83 H 04/08/23 10:44 87 98 04/08/23 10:39 63 97 04/08/23 10:34 68 99 04/08/23 10:30 136 H 20 166/126 H 04/08/23 10:29 109 H 99 04/08/23 10:24 70 97 04/08/23 10:19 72 99 04/08/23 10:15 62 154/100 H 04/08/23 10:14 78 100 04/08/23 10:09 82 98 04/08/23 10:04 72 96 04/08/23 10:00 72 18 151/95 H 04/08/23 09:59 75 98 04/08/23 09:54 66 98 04/08/23 09:49 68 100 04/08/23 09:45 63 146/94 H 04/08/23 09:44 79 96 04/08/23 09:39 73 97 04/08/23 09:34 76 95 04/08/23 09:30 65 20 139/88 04/08/23 09:29 67 97 04/08/23 09:24 68 99 04/08/23 09:19 65 98 04/08/23 09:15 68 143/85 H 04/08/23 09:14 66 98 04/08/23 09:09 69 98 04/08/23 09:04 98 H 98 04/08/23 09:00 97.9 F 20 04/08/23 08:59 76 99 04/08/23 08:54 76 100 04/08/23 08:49 77 99 04/08/23 08:46 108 H 143/98 H 04/08/23 08:44 135 H 97 04/08/23 08:39 88 97 04/08/23 08:34 88 99 04/08/23 08:30 20 04/08/23 08:30 73 141/98 H 04/08/23 08:29 74 98 04/08/23 08:24 75 98 04/08/23 08:19 86 98 04/08/23 08:15 67 136/91 04/08/23 08:14 81 97 04/08/23 08:09 85 97 04/08/23 08:04 96 H 100 04/08/23 08:00 82 20 154/95 H 04/08/23 07:59 99 H 99 04/08/23 07:54 77 99 04/08/23 07:49 83 98 04/08/23 07:45 82 148/92 H 04/08/23 07:44 85 99 04/08/23 07:39 100 H 99 04/08/23 07:34 84 97 04/08/23 07:31 67 128/86 04/08/23 07:30 18 04/08/23 07:29 75 97 04/08/23 07:24 69 96 04/08/23 07:19 74 97 04/08/23 07:15 80 137/91 04/08/23 07:14 79 96 04/08/23 07:09 80 98 04/08/23 07:04 74 99 04/08/23 07:00 97.7 F 20 04/08/23 07:00 16 04/08/23 07:00 16 04/08/23 06:59 68 96 04/08/23 06:54 72 99 04/08/23 06:49 74 97 04/08/23 06:46 62 140/89 04/08/23 06:44 73 96 04/08/23 06:39 86 96 04/08/23 06:34 84 96 04/08/23 06:30 71 18 143/93 H 04/08/23 06:29 74 100 04/08/23 06:24 84 93 04/08/23 06:19 93 H 93 04/08/23 06:15 80 122/73 04/08/23 06:14 80 93 04/08/23 06:09 89 93 04/08/23 06:04 75 93 04/08/23 06:00 75 16 125/76 04/08/23 05:59 86 92 04/08/23 05:54 82 92 04/08/23 05:49 87 93 04/08/23 05:45 74 114/76 04/08/23 05:44 81 93 04/08/23 05:39 83 92 04/08/23 05:34 80 94 04/08/23 05:31 98.2 F 78 16 120/66 04/08/23 05:29 79 94 04/08/23 05:24 79 94 04/08/23 05:19 77 95 04/08/23 05:15 85 126/71 04/08/23 05:14 81 97 04/08/23 05:09 85 98 04/08/23 05:04 88 99 04/08/23 05:01 98 H 135/88 04/08/23 05:00 18 04/08/23 05:00 18 04/08/23 04:59 70 100 04/08/23 04:54 82 100 04/08/23 04:49 104 H 99 04/08/23 04:46 151 H 142/96 H 04/08/23 04:44 136 H 98 04/08/23 04:39 85 98 04/08/23 04:34 71 97 04/08/23 04:30 75 18 120/68 04/08/23 04:29 88 98 04/08/23 04:24 90 99 04/08/23 04:19 78 98 Coding Level of Care Code None Diagnoses with 37 weeks completed gestation Z3A.37 Pre-eclampsia in third trimester O14.93 Trimester: third trimester
[2023-04-08] MEDS ORDERED: NURSING L&D Epidural Breakthrough Pain Update ONE (17:47)
--- NOTE | 2023-04-08 19:02 | Labor Progress Brief Note ---
Date of Service April 08, 2023 Subjective some more ctx pain but epidural setting changed and helped Assessment & Plan (1) with 37 weeks completed gestation: (2) Preeclampsia: Trimester: third trimester Qualified Code(s): O14.93 - Unspecified pre-eclampsia, third trimester Plan 22 yo G1 at 37 5/7 [facility] admitted w/ pre-eclampsia w/o severe features VSS, normal to mild range. Fetus cat 1 Labor - pit at 28 and ctx adequate. SVE still around 5, maybe a little more effaced but not significantly. Some head molding noted. Has been around 5 throughout the day, was 4 around 4am so not much filter changer >12. Fetus still very reassuring. Discussed concern about minimal change throughout the day. Discussed could continue induction if desires, pt feels like she is done as she has not had significant progress throughout the day and would like to proceed w/ CS. Discussed indications, risks, benefits, alternatives with risks including infection, bleeding, injury to adjacent structures (bowel, bladder, ureters, blood vessels, nerves, baby), possible need for blood transfusion and/or life saving hysterectomy, VTE. Consent reviewed in detail w/ pt and signed after all questions answered to her satisfaction. Pt already T&C, will give ancef/azithro Admission and Anticipated Discharge Date Admission Date: April 07, 2023 Physical Exam Genitourinary: Manual OB Exam: + cervical dilation 5 cm, + cervical effacement 70% and + station -1 OB Exam Monitor Tracing: + external FHT monitor used, + intra-uterine pressure catheter used (q3, adequate) and + category I Results & Data Vital Signs (Past 12 Hours) Vital Signs Temp Pulse Resp BP Pulse Ox 04/08/23 18:50 119 H 98 04/08/23 18:46 122 H 159/103 H 04/08/23 18:45 113 H 98 04/08/23 18:40 85 97 04/08/23 18:35 75 99 04/08/23 18:30 20 04/08/23 18:30 20 04/08/23 18:30 88 04/08/23 18:30 93 H 145/89 H 98 04/08/23 18:25 94 H 96 04/08/23 18:20 84 98 04/08/23 18:15 79 133/75 04/08/23 18:14 86 95 04/08/23 18:09 78 96 04/08/23 18:04 91 H 95 04/08/23 18:00 103 H 18 142/92 H 04/08/23 17:59 94 H 98 04/08/23 17:54 101 H 98 04/08/23 17:49 98 H 97 04/08/23 17:46 79 153/100 H 04/08/23 17:44 106 H 100 04/08/23 17:39 111 H 99 04/08/23 17:34 110 H 99 04/08/23 17:31 108 H 137/85 04/08/23 17:30 18 04/08/23 17:30 99.0 F 18 04/08/23 17:30 18 04/08/23 17:30 99.0 F 18 04/08/23 17:29 123 H 96 04/08/23 17:24 108 H 100 04/08/23 17:19 103 H 97 04/08/23 17:15 91 H 133/73 04/08/23 17:14 102 H 98 04/08/23 17:09 103 H 98 04/08/23 17:05 90 78 L 04/08/23 17:04 98 H 99 04/08/23 17:00 86 18 129/76 04/08/23 16:58 86 L 04/08/23 16:58 98 H 04/08/23 16:58 81 100 04/08/23 16:53 94 H 100 04/08/23 16:48 74 97 04/08/23 16:45 80 130/73 04/08/23 16:43 89 97 04/08/23 16:38 81 99 04/08/23 16:33 86 92 04/08/23 16:30 16 04/08/23 16:30 16 04/08/23 16:30 88 133/77 04/08/23 16:28 73 98 04/08/23 16:23 76 100 04/08/23 16:18 69 100 04/08/23 16:16 85 142/70 H 04/08/23 16:13 83 100 04/08/23 16:08 68 97 04/08/23 16:03 68 100 04/08/23 16:00 18 04/08/23 16:00 18 04/08/23 16:00 78 134/85 04/08/23 15:58 93 H 97 04/08/23 15:53 81 83 L 04/08/23 15:48 73 99 04/08/23 15:43 82 94 04/08/23 15:41 79 85 L 04/08/23 15:38 74 97 04/08/23 15:33 66 99 04/08/23 15:31 65 144/81 H 04/08/23 15:28 76 96 04/08/23 15:23 102 H 99 04/08/23 15:18 103 H 99 04/08/23 15:16 74 135/76 04/08/23 15:13 67 100 04/08/23 15:08 79 98 04/08/23 15:03 64 100 04/08/23 15:00 97.7 F 66 20 136/78 04/08/23 14:58 63 99 04/08/23 14:53 81 98 04/08/23 14:48 62 98 04/08/23 14:45 87 L 04/08/23 14:45 84 04/08/23 14:45 71 131/87 04/08/23 14:43 70 99 04/08/23 14:38 72 97 04/08/23 14:33 71 97 04/08/23 14:31 75 131/89 04/08/23 14:30 18 04/08/23 14:28 68 100 04/08/23 14:23 71 99 04/08/23 14:18 83 98 04/08/23 14:15 88 142/75 H 04/08/23 14:13 76 100 04/08/23 14:07 80 98 04/08/23 14:02 74 98 04/08/23 14:01 78 156/89 H 04/08/23 14:00 20 04/08/23 14:00 20 04/08/23 13:57 72 98 04/08/23 13:52 80 99 04/08/23 13:47 133 H 97 04/08/23 13:45 134 H 158/101 H 04/08/23 13:42 85 100 04/08/23 13:37 68 99 04/08/23 13:32 76 98 04/08/23 13:31 63 141/82 H 04/08/23 13:30 20 04/08/23 13:30 97.5 F L 20 01/31/24 13:27 74 99 04/08/23 13:22 77 100 04/08/23 13:15 62 131/77 04/08/23 13:14 80 98 04/08/23 13:09 62 98 04/08/23 13:04 77 99 04/08/23 13:00 74 18 137/82 04/08/23 12:59 68 100 04/08/23 12:54 66 99 04/08/23 12:49 75 99 04/08/23 12:45 80 140/89 04/08/23 12:44 73 96 04/08/23 12:39 70 100 04/08/23 12:34 72 100 04/08/23 12:30 18 04/08/23 12:30 126 H 142/93 H 04/08/23 12:29 124 H 97 04/08/23 12:24 91 H 97 04/08/23 12:19 67 100 04/08/23 12:15 61 137/71 04/08/23 12:14 93 H 99 04/08/23 12:09 73 95 04/08/23 12:04 65 96 04/08/23 12:00 20 04/08/23 12:00 66 142/73 H 04/08/23 11:59 65 95 04/08/23 11:54 91 H 94 04/08/23 11:49 77 95 04/08/23 11:45 66 132/70 04/08/23 11:44 67 98 04/08/23 11:39 67 99 04/08/23 11:34 65 99 04/08/23 11:30 83 18 137/78 04/08/23 11:29 87 100 04/08/23 11:24 81 100 04/08/23 11:19 84 99 04/08/23 11:16 75 133/93 04/08/23 11:14 75 99 04/08/23 11:09 66 100 04/08/23 11:04 78 98 04/08/23 11:01 71 152/84 H 04/08/23 11:00 18 04/08/23 11:00 98.6 F 18 04/08/23 10:59 73 98 04/08/23 10:54 119 H 98 04/08/23 10:49 67 96 04/08/23 10:45 80 147/83 H 04/08/23 10:44 87 98 04/08/23 10:39 63 97 04/08/23 10:34 68 99 04/08/23 10:30 136 H 20 166/126 H 04/08/23 10:29 109 H 99 04/08/23 10:24 70 97 04/08/23 10:19 72 99 04/08/23 10:15 62 154/100 H 04/08/23 10:14 78 100 04/08/23 10:09 82 98 04/08/23 10:04 72 96 04/08/23 10:00 72 18 151/95 H 04/08/23 09:59 75 98 04/08/23 09:54 66 98 04/08/23 09:49 68 100 04/08/23 09:45 63 146/94 H 04/08/23 09:44 79 96 04/08/23 09:39 73 97 04/08/23 09:34 76 95 04/08/23 09:30 65 20 139/88 04/08/23 09:29 67 97 04/08/23 09:24 68 99 04/08/23 09:19 65 98 04/08/23 09:15 68 143/85 H 04/08/23 09:14 66 98 04/08/23 09:09 69 98 04/08/23 09:04 98 H 98 04/08/23 09:00 97.9 F 20 04/08/23 08:59 76 99 04/08/23 08:54 76 100 04/08/23 08:49 77 99 04/08/23 08:46 108 H 143/98 H 04/08/23 08:44 135 H 97 04/08/23 08:39 88 97 04/08/23 08:34 88 99 04/08/23 08:30 20 04/08/23 08:30 73 141/98 H 04/08/23 08:29 74 98 04/08/23 08:24 75 98 04/08/23 08:19 86 98 04/08/23 08:15 67 136/91 04/08/23 08:14 81 97 04/08/23 08:09 85 97 04/08/23 08:04 96 H 100 04/08/23 08:00 82 20 154/95 H 04/08/23 07:59 99 H 99 04/08/23 07:54 77 99 04/08/23 07:49 83 98 04/08/23 07:45 82 148/92 H 04/08/23 07:44 85 99 04/08/23 07:39 100 H 99 04/08/23 07:34 84 97 04/08/23 07:31 67 128/86 04/08/23 07:30 18 04/08/23 07:29 75 97 04/08/23 07:24 69 96 04/08/23 07:19 74 97 04/08/23 07:15 80 137/91 04/08/23 07:14 79 96 04/08/23 07:09 80 98 04/08/23 07:04 74 99 04/08/23 07:00 97.7 F 20 04/08/23 07:00 16 04/08/23 07:00 16 04/08/23 06:59 68 96 Coding Level of Care Code None Diagnoses with 37 weeks completed gestation Z3A.37 Pre-eclampsia in third trimester O14.93 Trimester: third trimester
[2023-04-08] MEDS: CITRIC ACID/SODIUM CITRATE 15 ML UDC PO SCH (19:09)
[2023-04-08] MEDS ORDERED: MoRPHine SULFATE PF 1 MG/ML 10 ML AMP/VIAL ONE (19:10)
[2023-04-08] MEDS ORDERED: PHENYLEPHRINE HCL 10 MG/ML VIAL ONE (19:10)
[2023-04-08] MEDS ORDERED: OXYTOCIN 10 UNITS/ML VIAL ONE (19:10)
[2023-04-08] MEDS ORDERED: fentaNYL citrate PF 100 MCG/2 ML VIAL ONE ×3 (19:10→20:08)
[2023-04-08] MEDS ORDERED: LIDOCAINE 2%/EPINEPHRINE 1:200,000 20 ML PF ONE (19:15)
[2023-04-08] MEDS: AZITHROMYCIN 500 MG in DEXTROSE 5% 250 ML IV SCH (19:19)
[2023-04-08] MEDS: ceFAZolin 2000MG 2,000 MG/15 ML SYR IV SCH (19:19)
[2023-04-08] MEDS ORDERED: LACTATED RINGER'S 500 ML IV PRN (19:23)
[2023-04-08] MEDS ORDERED: NALOXONE HCL 0.08 MG in SYRINGE 1.8 ML IV PRN (19:23)
[2023-04-08] MEDS ORDERED: DC INTRASPINAL MORPHINE SCH (19:30)
[2023-04-08] MEDS ORDERED: NO NARCOTICS OR SEDATIVES SCH (19:30)
[2023-04-08] MEDS ORDERED: KETAMINE HCL 10MG/ML SYR ONE (19:56)
[2023-04-08] MEDS ORDERED: MIDAZOLAM HCL 1 MG/ML 2ML VIAL ONE (19:57)
[2023-04-08] MEDS ORDERED: SODIUM CHLORIDE 0.9% 250 ML IV PRN (20:17)
--- NOTE | 2023-04-08 20:49 | Anesthesia Procedure Note ---
Date of Service April 08, 2023 Anesthesia Post Epidural Note Vital Signs Vital Signs: Temp Pulse Resp BP Pulse Ox O2 Del Method 36.6 C 135 H 16 135/85 97 Room Air 04/08/23 19:00 04/08/23 20:47 04/08/23 19:00 04/08/23 20:42 04/08/23 20:47 04/07/23 19:10 Notes Mental Status: alert / awake / arousable and participated in evaluation Nausea / Vomiting: adequately controlled Pain: adequately controlled Airway Patency, RR, SpO2: stable & adequate BP & HR: stable & adequate Hydration State: stable & adequate Neuraxial Anesthesia: was administered and sensory block resolved Anesthetic Complications: no major complications apparent and Pt Satisfied with anesthetic care Epidural: Removed without complications and With tip intact
--- NOTE | 2023-04-08 20:49 | Anesthesiology Progress Note ---
Date of Service April 08, 2023 Anesthesia Post Procedure Vital Signs Vital Signs: Temp Pulse Resp BP Pulse Ox 04/08/23 20:47 135 H 97 04/08/23 20:42 153 H 135/85 96 04/08/23 19:19 108 H 97 04/08/23 19:16 110 H 159/97 H 04/08/23 19:14 108 H 96 04/08/23 19:00 36.6 C 16 04/08/23 19:00 115 H 20 158/92 H 04/08/23 18:55 129 H 97 04/08/23 18:50 119 H 98 04/08/23 18:46 122 H 159/103 H 04/08/23 18:45 113 H 98 04/08/23 18:40 85 97 04/08/23 18:35 75 99 04/08/23 18:30 20 04/08/23 18:30 20 04/08/23 18:30 88 04/08/23 18:30 93 H 145/89 H 98 04/08/23 18:25 94 H 96 04/08/23 18:20 84 98 04/08/23 18:15 79 133/75 04/08/23 18:14 86 95 04/08/23 18:09 78 96 04/08/23 18:04 91 H 95 04/08/23 18:00 103 H 18 142/92 H 04/08/23 17:59 94 H 98 04/08/23 17:54 101 H 98 04/08/23 17:49 98 H 97 04/08/23 17:46 79 153/100 H 04/08/23 17:44 106 H 100 04/08/23 17:39 111 H 99 04/08/23 17:34 110 H 99 04/08/23 17:31 108 H 137/85 04/08/23 17:30 18 04/08/23 17:30 37.2 C 18 04/08/23 17:30 18 04/08/23 17:30 37.2 C 18 04/08/23 17:29 123 H 96 04/08/23 17:24 108 H 100 04/08/23 17:19 103 H 97 04/08/23 17:15 91 H 133/73 04/08/23 17:14 102 H 98 04/08/23 17:09 103 H 98 04/08/23 17:05 90 78 L 04/08/23 17:04 98 H 99 04/08/23 17:00 86 18 129/76 04/08/23 16:58 86 L 04/08/23 16:58 98 H 04/08/23 16:58 81 100 04/08/23 16:53 94 H 100 04/08/23 16:48 74 97 04/08/23 16:45 80 130/73 04/08/23 16:43 89 97 04/08/23 16:38 81 99 04/08/23 16:33 86 92 04/08/23 16:30 16 04/08/23 16:30 16 04/08/23 16:30 88 133/77 04/08/23 16:28 73 98 04/08/23 16:23 76 100 04/08/23 16:18 69 100 04/08/23 16:16 85 142/70 H 04/08/23 16:13 83 100 04/08/23 16:08 68 97 04/08/23 16:03 68 100 04/08/23 16:00 18 04/08/23 16:00 18 04/08/23 16:00 78 134/85 04/08/23 15:58 93 H 97 04/08/23 15:53 81 83 L 04/08/23 15:48 73 99 04/08/23 15:43 82 94 04/08/23 15:41 79 85 L 04/08/23 15:38 74 97 04/08/23 15:33 66 99 04/08/23 15:31 65 144/81 H 04/08/23 15:28 76 96 04/08/23 15:23 102 H 99 04/08/23 15:18 103 H 99 04/08/23 15:16 74 135/76 04/08/23 15:13 67 100 04/08/23 15:08 79 98 04/08/23 15:03 64 100 04/08/23 15:00 36.5 C 66 20 136/78 04/08/23 14:58 63 99 04/08/23 14:53 81 98 04/08/23 14:48 62 98 04/08/23 14:45 87 L 04/08/23 14:45 84 04/08/23 14:45 71 131/87 04/08/23 14:43 70 99 04/08/23 14:38 72 97 04/08/23 14:33 71 97 04/08/23 14:31 75 131/89 04/08/23 14:30 18 04/08/23 14:28 68 100 04/08/23 14:23 71 99 04/08/23 14:18 83 98 04/08/23 14:15 88 142/75 H 04/08/23 14:13 76 100 04/08/23 14:07 80 98 04/08/23 14:02 74 98 04/08/23 14:01 78 156/89 H 04/08/23 14:00 20 04/08/23 14:00 20 04/08/23 13:57 72 98 04/08/23 13:52 80 99 04/08/23 13:47 133 H 97 04/08/23 13:45 134 H 158/101 H 04/08/23 13:42 85 100 04/08/23 13:37 68 99 04/08/23 13:32 76 98 04/08/23 13:31 63 141/82 H 04/08/23 13:30 20 04/08/23 13:30 36.4 C L 20 04/08/23 13:27 74 99 04/08/23 13:22 77 100 04/08/23 13:15 62 131/77 04/08/23 13:14 80 98 04/08/23 13:09 62 98 04/08/23 13:04 77 99 04/08/23 13:00 74 18 137/82 04/08/23 12:59 68 100 04/08/23 12:54 66 99 04/08/23 12:49 75 99 04/08/23 12:45 80 140/89 04/08/23 12:44 73 96 04/08/23 12:39 70 100 04/08/23 12:34 72 100 04/08/23 12:30 18 04/08/23 12:30 126 H 142/93 H 04/08/23 12:29 124 H 97 04/08/23 12:24 91 H 97 04/08/23 12:19 67 100 04/08/23 12:15 61 137/71 04/08/23 12:14 93 H 99 04/08/23 12:09 73 95 04/08/23 12:04 65 96 04/08/23 12:00 20 04/08/23 12:00 66 142/73 H 04/08/23 11:59 65 95 04/08/23 11:54 91 H 94 04/08/23 11:49 77 95 04/08/23 11:45 66 132/70 04/08/23 11:44 67 98 04/08/23 11:39 67 99 04/08/23 11:34 65 99 04/08/23 11:30 83 18 137/78 04/08/23 11:29 87 100 04/08/23 11:24 81 100 04/08/23 11:19 84 99 04/08/23 11:16 75 133/93 04/08/23 11:14 75 99 04/08/23 11:09 66 100 04/08/23 11:04 78 98 04/08/23 11:01 71 152/84 H 04/08/23 11:00 18 04/08/23 11:00 37.0 C 18 04/08/23 10:59 73 98 04/08/23 10:54 119 H 98 04/08/23 10:49 67 96 04/08/23 10:45 80 147/83 H 04/08/23 10:44 87 98 04/08/23 10:39 63 97 04/08/23 10:34 68 99 04/08/23 10:30 136 H 20 166/126 H 04/08/23 10:29 109 H 99 04/08/23 10:24 70 97 04/08/23 10:19 72 99 04/08/23 10:15 62 154/100 H 04/08/23 10:14 78 100 04/08/23 10:09 82 98 04/08/23 10:04 72 96 04/08/23 10:00 72 18 151/95 H 04/08/23 09:59 75 98 04/08/23 09:54 66 98 04/08/23 09:49 68 100 04/08/23 09:45 63 146/94 H 04/08/23 09:44 79 96 04/08/23 09:39 73 97 04/08/23 09:34 76 95 04/08/23 09:30 65 20 139/88 04/08/23 09:29 67 97 04/08/23 09:24 68 99 04/08/23 09:19 65 98 04/08/23 09:15 68 143/85 H 04/08/23 09:14 66 98 04/08/23 09:09 69 98 04/08/23 09:04 98 H 98 04/08/23 09:00 36.6 C 20 04/08/23 08:59 76 99 04/08/23 08:54 76 100 04/08/23 08:49 77 99 04/08/23 08:46 108 H 143/98 H 04/08/23 08:44 135 H 97 04/08/23 08:39 88 97 04/08/23 08:34 88 99 04/08/23 08:30 20 04/08/23 08:30 73 141/98 H 04/08/23 08:29 74 98 04/08/23 08:24 75 98 04/08/23 08:19 86 98 04/08/23 08:15 67 136/91 04/08/23 08:14 81 97 04/08/23 08:09 85 97 04/08/23 08:04 96 H 100 04/08/23 08:00 82 20 154/95 H 04/08/23 07:59 99 H 99 04/08/23 07:54 77 99 04/08/23 07:49 83 98 04/08/23 07:45 82 148/92 H 04/08/23 07:44 85 99 04/08/23 07:39 100 H 99 04/08/23 07:34 84 97 04/08/23 07:31 67 128/86 04/08/23 07:30 18 04/08/23 07:29 75 97 04/08/23 07:24 69 96 04/08/23 07:19 74 97 04/08/23 07:15 80 137/91 04/08/23 07:14 79 96 04/08/23 07:09 80 98 04/08/23 07:04 74 99 04/08/23 07:00 36.5 C 20 04/08/23 07:00 16 04/08/23 07:00 16 04/08/23 06:59 68 96 04/08/23 06:54 72 99 04/08/23 06:49 74 97 04/08/23 06:46 62 140/89 04/08/23 06:44 73 96 04/08/23 06:39 86 96 04/08/23 06:34 84 96 04/08/23 06:30 71 18 143/93 H 04/08/23 06:29 74 100 04/08/23 06:24 84 93 04/08/23 06:19 93 H 93 04/08/23 06:15 80 122/73 04/08/23 06:14 80 93 04/08/23 06:09 89 93 04/08/23 06:04 75 93 04/08/23 06:00 75 16 125/76 04/08/23 05:59 86 92 04/08/23 05:54 82 92 04/08/23 05:49 87 93 04/08/23 05:45 74 114/76 04/08/23 05:44 81 93 04/08/23 05:39 83 92 04/08/23 05:34 80 94 04/08/23 05:31 36.8 C 78 16 120/66 04/08/23 05:29 79 94 04/08/23 05:24 79 94 04/08/23 05:19 77 95 04/08/23 05:15 85 126/71 04/08/23 05:14 81 97 04/08/23 05:09 85 98 04/08/23 05:04 88 99 04/08/23 05:01 98 H 135/88 04/08/23 05:00 18 04/08/23 05:00 18 04/08/23 04:59 70 100 04/08/23 04:54 82 100 04/08/23 04:49 104 H 99 04/08/23 04:46 151 H 142/96 H 04/08/23 04:44 136 H 98 04/08/23 04:39 85 98 04/08/23 04:34 71 97 04/08/23 04:30 75 18 120/68 04/08/23 04:29 88 98 04/08/23 04:24 90 99 04/08/23 04:19 78 98 04/08/23 04:16 78 129/76 04/08/23 04:14 91 H 97 04/08/23 04:09 69 97 04/08/23 04:04 88 96 04/08/23 04:00 108 H 16 133/88 04/08/23 03:59 109 H 98 04/08/23 03:54 100 H 98 04/08/23 03:49 93 H 99 04/08/23 03:45 93 H 134/83 04/08/23 03:44 88 97 04/08/23 03:39 142 H 99 04/08/23 03:34 89 98 04/08/23 03:30 36.4 C L 65 127/76 04/08/23 03:29 97 H 98 04/08/23 03:24 87 97 04/08/23 03:19 91 H 98 04/08/23 03:15 72 128/74 04/08/23 03:14 88 96 04/08/23 03:09 100 H 96 04/08/23 03:04 104 H 96 04/08/23 03:00 67 118/62 04/08/23 02:59 93 H 98 04/08/23 02:54 92 H 98 04/08/23 02:49 109 H 98 04/08/23 02:45 82 130/80 04/08/23 02:44 82 98 04/08/23 02:39 90 96 04/08/23 02:34 94 H 98 04/08/23 02:30 73 122/80 04/08/23 02:29 89 99 04/08/23 02:26 107 H 82 L 04/08/23 02:24 79 97 04/08/23 02:19 90 99 04/08/23 02:16 83 133/88 04/08/23 02:14 89 99 04/08/23 02:09 84 98 04/08/23 02:04 119 H 99 04/08/23 02:00 88 16 133/93 04/08/23 01:59 71 98 04/08/23 01:54 101 H 93 04/08/23 01:49 67 98 04/08/23 01:45 78 138/84 04/08/23 01:44 83 99 04/08/23 01:39 95 H 98 04/08/23 01:34 102 H 99 04/08/23 01:29 36.7 C 105 H 142/92 H 99 04/08/23 01:24 93 H 99 04/08/23 01:23 75 142/85 H 04/08/23 01:19 117 H 98 04/08/23 01:18 96 H 135/84 04/08/23 01:14 91 H 134/81 98 04/08/23 01:09 85 98 04/08/23 01:08 103 H 136/86 04/08/23 01:04 103 H 96 04/08/23 01:02 84 130/70 04/08/23 01:00 110 H 129/77 04/08/23 00:59 99 04/08/23 00:59 71 04/08/23 00:59 70 138/85 04/08/23 00:57 73 145/87 H 04/08/23 00:55 85 168/87 H 04/08/23 00:54 90 100 04/08/23 00:23 36.5 C 04/08/23 00:22 82 135/90 04/07/23 23:52 98 04/07/23 23:52 89 04/07/23 23:47 97 04/07/23 23:47 79 04/07/23 23:42 98 04/07/23 23:42 86 04/07/23 23:37 98 04/07/23 23:37 99 H 04/07/23 23:32 95 04/07/23 23:32 87 04/07/23 23:27 97 04/07/23 23:27 75 04/07/23 23:22 97 04/07/23 23:22 76 04/07/23 23:17 88 L 04/07/23 23:17 78 04/07/23 23:12 99 04/07/23 23:12 86 04/07/23 23:07 97 04/07/23 23:07 81 04/07/23 23:02 97 04/07/23 23:02 95 H 04/07/23 22:57 97 04/07/23 22:57 82 04/07/23 22:52 97 04/07/23 22:52 86 04/07/23 22:47 96 04/07/23 22:47 83 04/07/23 22:42 96 04/07/23 22:42 82 04/07/23 22:37 96 04/07/23 22:37 84 04/07/23 22:34 76 04/07/23 22:34 115/80 04/07/23 22:32 95 04/07/23 22:32 95 H 04/07/23 22:30 16 04/07/23 22:30 36.8 C 16 04/07/23 22:27 94 04/07/23 22:27 79 04/07/23 22:22 95 04/07/23 22:22 96 H 04/07/23 22:17 97 04/07/23 22:17 67 04/07/23 22:12 95 04/07/23 22:12 75 04/07/23 22:07 95 04/07/23 22:07 74 04/07/23 22:02 96 04/07/23 22:02 69 04/07/23 21:57 96 04/07/23 21:57 76 04/07/23 21:52 96 04/07/23 21:52 69 04/07/23 21:47 95 04/07/23 21:47 70 04/07/23 21:42 96 04/07/23 21:42 74 04/07/23 21:37 94 04/07/23 21:37 73 04/07/23 21:32 95 04/07/23 21:32 70 04/07/23 21:27 95 04/07/23 21:27 80 04/07/23 21:22 95 04/07/23 21:22 66 04/07/23 21:17 96 04/07/23 21:17 86 04/07/23 21:12 95 04/07/23 21:12 82 04/07/23 21:07 94 04/07/23 21:07 69 04/07/23 21:06 93 04/07/23 21:06 79 04/07/23 21:02 99 04/07/23 21:02 89 Transfer of Care Handoff Completed per policy Notes Mental Status: alert / awake / arousable and participated in evaluation Patient Amnestic to Procedure: Yes Nausea / Vomiting: adequately controlled Pain: adequately controlled Airway Patency, RR, SpO2: stable & adequate BP & HR: stable & adequate Hydration State: stable & adequate Anesthetic Complications: no major complications apparent and Pt Satisfied with anesthetic care
[2023-04-08] MEDS: CARBOPROST TROMETHAMINE 250 MCG/ML AMPUL IM ONE (20:55)
--- NOTE | 2023-04-08 21:12 | Operative Report ---
PG Post Operative Report Pre & Post Diagnosis Operation Date: 04/08/23 18:55 Single intrauterine at 37 5/7 wga Pre-eclampsia w/o severe features A1GDM Resolved FGR Abnormal Anatomy US FTP I identified the patient and participated in the time-out.: Yes Procedure Operation Date: 04/08/23 18:55 Primary Low Transverse Section Surgeon Shandra Bonilla MD Prosthetist JARON Ruiz Estimated Blood Loss 700 Findings Consistent with Post-Op Diagnosis Normal appearing uterus, bilateral fallopian tubes, ovaries. Viable male with APGARS of 8 and 9 weighing 6lbs 4oz Fluids 1200cc crystalloid, UOP 200cc by cisse catheter Specimens Placenta, cord blood Drains Cisse draining clear urine Anesthesia Type L&D Only Epidural Exists Complications none Disposition Accompanied Patient To Recovery: Yes Disposition: L&D Indications 22 yo G1 at 37 5/7 wga presented for routine OB visit and noted to have elevated BPs so sent to L&D for further monitoring. During evaluation, she met criteria for pre-eclampsia without severe features and recommended for induction given GA. Induction was begun with cisse bulb and pitocin. Following cisse bulb expulsion, she underwent srom and received an epidural for pain control. Pitocin continued to be titrated with IUPC placed for more accurate monitoring. However, despite adequate contractions, SVE did not progress beyond 4-5cm for 12hrs. She was counseled regarding options and desired to proceed with above procedure Description of Procedure The patient was taken to the operating room after consents were ensured. The patient was properly identified. Epidural anesthesia was bolused without difficulty. The patient was placed in a dorsal supine position with left lateral tilt, then prepped and draped in normal sterile fashion. Surgical time out was performed. Antibiotics were given for prophylaxis. Anesthesia was tested to ensure adequate surgical levels. Pfannenstiel skin incision was performed and carried down to the underlying fascia with a knife. The fascia was then nicked in the midline and extended laterally with pickmorris and Fowler scissors. Superior portion of the fascia was grasped with Kochers x2 and elevated off the underlying rectus muscles using blunt dissection. Inferior portion of the fascia was then grasped with Kevin clamps x2 and also elevated off the underlying muscles with blunt dissection. Midline was identified. The peritoneum was then entered and extended to provide adequate room for delivery of baby. A hand was inserted into the abdomen, uterus was noted to be clear of adhesions. Bladder blade was inserted, bladder flap was created in the usual fashion. A low transverse uterine incision was made in the uterus and extended bluntly in a superior to inferior fashion. Clear fluid noted at the time of entry. head was grasped and elevated to the hysterotomy in an atraumatic fashion but did not delivery easily with fundal pressure. Kiwi vacuum was called and applied to the flexion point with care to avoid maternal tissue. Suction was increaed to green zone and vacuum was pulled with fundal pressure. The baby delivered in PILLO position, no nuchal cord. Vacuum was removed. Remainder of the body delivered without incident. Nose and mouth were bulb suctioned on the surgical field. The cord was double clamped and cut, baby was handed off to awaiting pediatrics staff. Cord segment and blood were obtained. Placenta was then expressed from the uterus. The uterus was exter iorized. Several passes were made inside the uterus to remove the remaining membranes. Attention was then turned to the hysterotomy, which was then closed with a running locked suture of 0 Vicryl on a CTX needle. An imbricating layer was then performed using 0-Monocryl. There was noted to be good hemostasis. The posterior cul-de-sac was then inspected and cleaned of clot and debris. The hysterotomy was again inspected and noted to be hemostatic. The uterus was returned to the abdomen. The right and left pericolic gutters were cleaned of all clot and debris. The hysterotomy was again noted to be hemostatic. Space of Retzius was noted to be hemostatic. The fascia was then closed with a running suture of 0 Vicryl on a CT1 needle. Subcutaneous tissue was copiously irrigated and noted to be hemostatic. Subcutaneous tissue was re-approximated using 2-0 plain gut. The skin was then closed with a running suture of 3-0 Monocryl in a subcuticular fashion. At termination of the procedure, fundal pressure was applied and a moderate amount of lochia was expressed. Pressure dressing was applied to the patient. She tolerated the procedure well. All sponge, needle, instrument counts were correct x 2. I attest to the content of the Intraoperative Record and any orders documented therein. Any exceptions are noted below. OB Procedure Charges 73661
[2023-04-08] MEDS: miSOPROStoL 200 MCG TAB PR ONE (21:20)
--- NOTE | 2023-04-08 21:25 | Communication Note ---
Date of Service: April 08, 2023 Called to bedside by nursing after returning to room due to gush of blood. On my evaluation, fundus is firm so suspect JENNIFER atony, small gush noted with fundal massage so hemabate given and improvement noted. Shortly after, another gush occurred. Fundus again firm. Due to suspicion of JENNIFER atony, manual extraction of clot was performed. With chux weighed after first gush and clot removed, total EBL was 525. Bleeding much improved afterward and 800mcg cytotec given GA. Will continue to monitor
[2023-04-08] MEDS: HYDROmorphone INJ 0.5 MG/0.5 ML SYR IV PRN (21:40)
[2023-04-08] MEDS: DOCUSATE SODIUM 100 MG CAP PO SCH (22:30)
[2023-04-08] MEDS ORDERED: BENZOCAINE 20% SPRY 85 APPLN/85 GM CAN EXT PRN (22:50)
[2023-04-08] MEDS ORDERED: SENNA 8.6 MG TAB PO PRN (22:50)
[2023-04-08] MEDS ORDERED: HYDROCORTISONE ACETATE 25 MG SUPP PR PRN (22:50)
[2023-04-08] MEDS ORDERED: MAGNESIUM HYDROXIDE SUSP 30 ML UDC PO PRN (22:50)
[2023-04-08] MEDS: OXYTOCIN 20 UNITS/LR 1,002 ML IV SCH (23:22)
[2023-04-09] MEDS: SIMETHICONE 80 MG CHEW PO SCH (00:15)
[2023-04-09] MEDS: KETOROLAC 30 MG/ML VIAL IV PRN (00:22)
[2023-04-09 01:08] LABS: Hematocrit (blood only) 20.2 % (37.0-47.0); Hemoglobin 6.4 g/dl (12.0-16.0); Mean Corpuscular Hemoglobin 26.7 pg (25.0-34.0); Mean Corpuscular Hgb Conc 31.7 g/dL (32.0-36.0); Mean Corpuscular Volume 84.2 fL (80.0-100.0); Mean Platelet Volume 9.7 fL (9.4-12.4); Platelet Count 271 K/uL (130-400); RDW Coefficient of Variation 15.2 % (11.5-14.5); RDW Standard Deviation 46.5 fL (36.4-46.3); White Blood Count 26.36 K/ul (4.8-10.8)
[2023-04-09] MEDS ORDERED: SODIUM CHLORIDE 0.9% 250 ML IV PRN (01:21)
--- NOTE | 2023-04-09 01:25 | Communication Note ---
Date of Service: April 09, 2023 Midnight CBC returned at 6.4 Starting h/h 9.4 which was likely slightly concentrated to start. EBL during CS 700 and weighed out PPH was 525. Before t he weighed chux and clot, there was lochia from transfer from the OR that was not measured as well. Bleeding appropriate now, VSS. Had discussed possibility of blood given low starting and PPH at the time of PPH. Discussed blood transfusion w/ pt including risks prior to procedure as well as now. Discussed that I suspect would cbc in the AM would continue to downtrend and she is amenable to transfusion of 1 of the units already on hold currently so will proceed now
[2023-04-09] MEDS: MoRPHine SULFATE 2 MG/ML CARP IV PRN (03:53)
[2023-04-09 05:58] LABS: Hematocrit (blood only) 20.8 % (37.0-47.0); Hemoglobin 6.9 g/dl (12.0-16.0); Mean Corpuscular Hgb Conc 33.2 g/dL (32.0-36.0); Mean Corpuscular Volume 81.3 fL (80.0-100.0); Mean Platelet Volume 9.7 fL (9.4-12.4); Nucleated RBC # (auto) 0.02 K/uL (0.00-0.12); Nucleated RBC % (auto) 0.1 %; Platelet Count 236 K/uL (130-400); RDW Coefficient of Variation 15.1 % (11.5-14.5); RDW Standard Deviation 44.9 fL (36.4-46.3); Red Blood Count 2.56 M/uL (4.20-5.40); White Blood Count 22.58 K/ul (4.8-10.8)
--- NOTE | 2023-04-09 06:21 | Obstetrical Progress Note ---
Date of Service <Jessica Bartlett DO - Last Filed: 04/09/23 06:21> April 09, 2023 Assessment & Plan <Jessica Bartlett DO - Last Filed: 04/09/23 06:21> (1) care following delivery: (2) Gestational diabetes mellitus (GDM) affecting , antepartum: (3) Preeclampsia: Trimester: third trimester Qualified Code(s): O14.93 - Unspecified pre-eclampsia, third trimester (4) hemorrhage: Plan Feels well today. Not yet eating solids but tolerating liquids so far, not yet voiding or ambulating on own. Pain well controlled with prn analgesics. Routine care; OOB, ambulation, diet progression as tolerated. Encouraged goals for today of ambulating, voiding, and tolerating intake. Anticipate discharge 48-72 hours after c section delivery, earliest probably thursday. After discharge will have 6 week follow-up with Dr. Bonilla. <Shandra Bonilla MD - Last Filed: 04/09/23 07:58> (1) care following delivery: (2) Gestational diabetes mellitus (GDM) affecting , antepartum: (3) Preeclampsia: (4) hemorrhage: Subjective <Jessica Bartlett DO - Last Filed: 04/09/23 06:21> Pt is a 22 y/o female who is POD#1 following delivery at 37 weeks. complicated by GDM, preeclampsia w/o severe features, Delivery complicated by PPH s/p cytotec and Hemabate. Today, pt states she is tired but feeling okay so far. Has only had water and gingerale since the delivery but has been tolerating that okay. Camp still in place. She has not yet been up and moving about. She notes no more gushing of blood overnight and that bleeding is now very minimal. Cramping is mild. She is bottle feeding right now. Constitutional: no fever, no chills or no sweats Respiratory: no dyspnea Cardiovascular: no chest pain or no palpitations Breast: no breast pain Genitourinary (female): no dysuria Neurologic: no headache(s) no changes in vision, Physical Exam <Jessica Bartlett DO - Last Filed: 04/09/23 06:21> General: Alert, oriented. No acute distress. Cardiac: Regular rate and rhythm, no murmurs, rubs, or gallops. Respiratory: Clear to auscultation bilaterally, no wheezes/rales/rhonchi. No increased work of breathing. Symmetrical chest rise. No respiratory distress. Abdomen: Soft, nontender, nondistended. Bowel sounds present. Uterus: Uterine fundus firm, palpable below the umbilicus. Surgical scar clean and healing well. Lower extremities: No lower extremity edema or swelling. No deep calf pain. Results & Data <Jessica Bartlett DO - Last Filed: 04/09/23 06:21> Vital Signs (Past 12 Hours) Vital Signs Temp Pulse Pulse Resp BP BP Pulse Ox 04/09/23 04:45 36.8 C 105 H 18 107/66 97 04/09/23 03:45 37 C 102 H 18 123/73 98 04/09/23 03:15 37 C 91 H 18 114/74 98 04/09/23 03:15 18 98 04/09/23 03:15 37 C 91 H 18 114/74 98 04/09/23 03:00 37.2 C 90 18 111/66 99 04/09/23 02:45 36.8 C 97 H 16 134/76 98 04/09/23 02:20 18 98 04/09/23 01:10 18 97 04/09/23 00:15 18 98 04/08/23 23:40 37 C 96 H 18 121/83 98 04/08/23 23:40 18 98 04/08/23 23:17 104 H 128/88 04/08/23 23:12 120 H 99 04/08/23 23:07 112 H 96 04/08/23 23:02 97 04/08/23 23:02 103 H 04/08/23 23:02 100 H 133/90 04/08/23 22:57 102 H 98 04/08/23 22:52 123 H 98 04/08/23 22:48 124 H 91 04/08/23 22:47 113 H 100 04/08/23 22:46 125 H 138/96 04/08/23 22:45 36.5 C 16 04/08/23 22:42 115 H 94 04/08/23 22:37 122 H 95 04/08/23 22:36 113 H 143/93 H 90 04/08/23 22:32 130 H 100 04/08/23 22:27 124 H 99 04/08/23 22:26 125 H 146/103 H 04/08/23 22:25 124 H 89 L 04/08/23 22:22 126 H 100 04/08/23 22:17 133 H 100 04/08/23 22:16 129 H 162/104 H 04/08/23 22:15 16 04/08/23 22:12 138 H 100 04/08/23 22:07 141 H 100 04/08/23 22:06 129 H 153/100 H 04/08/23 22:02 132 H 100 04/08/23 21:57 157 H 100 04/08/23 21:56 150 H 154/97 H 04/08/23 21:52 127 H 100 04/08/23 21:51 125 H 92 04/08/23 21:47 142 H 97 04/08/23 21:46 150 H 158/102 H 04/08/23 21:45 36.5 C 04/08/23 21:45 36.5 C 04/08/23 21:42 150 H 99 04/08/23 21:37 147 H 100 04/08/23 21:36 142 H 148/79 H 04/08/23 21:35 04/08/23 21:34 136 H 90 04/08/23 21:32 149 H 98 04/08/23 21:27 150 H 98 04/08/23 21:26 148 H 134/78 94 04/08/23 21:25 16 04/08/23 21:22 149 H 98 04/08/23 21:20 144 H 133/89 93 04/08/23 21:17 160 H 98 04/08/23 21:15 16 04/08/23 21:12 144 H 96 04/08/23 21:10 140 H 93 04/08/23 21:07 158 H 99 04/08/23 21:06 150 H 124/78 04/08/23 21:05 16 04/08/23 21:04 142 H 92 04/08/23 21:02 154 H 99 04/08/23 21:00 136 H 139/81 04/08/23 20:57 144 H 99 04/08/23 20:55 16 04/08/23 20:53 145 H 87 L 04/08/23 20:52 151 H 98 04/08/23 20:47 135 H 97 04/08/23 20:45 36.6 C 18 04/08/23 20:42 153 H 135/85 96 04/08/23 19:19 108 H 97 04/08/23 19:16 110 H 159/97 H 04/08/23 19:14 108 H 96 04/08/23 19:00 36.6 C 16 04/08/23 19:00 115 H 20 158/92 H 04/08/23 18:55 129 H 97 04/08/23 18:50 119 H 98 04/08/23 18:46 122 H 159/103 H 04/08/23 18:45 113 H 98 04/08/23 18:40 85 97 04/08/23 18:35 75 99 04/08/23 18:30 20 04/08/23 18:30 20 04/08/23 18:30 88 04/08/23 18:30 93 H 145/89 H 98 04/08/23 18:25 94 H 96 04/08/23 18:20 84 98 O2 Del Method 04/09/23 04:45 04/09/23 03:45 04/09/23 03:15 Room Air 04/09/23 03:15 04/09/23 03:15 04/09/23 03:00 04/09/23 02:45 04/09/23 02:20 04/09/23 01:10 04/09/23 00:15 04/08/23 23:40 Room Air 04/08/23 23:40 04/08/23 23:17 04/08/23 23:12 04/08/23 23:07 04/08/23 23:02 04/08/23 23:02 04/08/23 23:02 04/08/23 22:57 04/08/23 22:52 04/08/23 22:48 04/08/23 22:47 04/08/23 22:46 04/08/23 22:45 04/08/23 22:42 04/08/23 22:37 04/08/23 22:36 04/08/23 22:32 04/08/23 22:27 04/08/23 22:26 04/08/23 22:25 04/08/23 22:22 04/08/23 22:17 04/08/23 22:16 04/08/23 22:15 04/08/23 22:12 04/08/23 22:07 04/08/23 22:06 04/08/23 22:02 04/08/23 21:57 04/08/23 21:56 04/08/23 21:52 04/08/23 21:51 04/08/23 21:47 04/08/23 21:46 04/08/23 21:45 04/08/23 21:45 04/08/23 21:42 04/08/23 21:37 04/08/23 21:36 04/08/23 21:35 04/08/23 21:34 04/08/23 21:32 04/08/23 21:27 04/08/23 21:26 04/08/23 21:25 04/08/23 21:22 04/08/23 21:20 04/08/23 21:17 04/08/23 21:15 04/08/23 21:12 04/08/23 21:10 04/08/23 21:07 04/08/23 21:06 04/08/23 21:05 04/08/23 21:04 04/08/23 21:02 04/08/23 21:00 04/08/23 20:57 04/08/23 20:55 04/08/23 20:53 04/08/23 20:52 04/08/23 20:47 04/08/23 20:45 04/08/23 20:42 04/08/23 19:19 04/08/23 19:16 04/08/23 19:14 04/08/23 19:00 04/08/23 19:00 04/08/23 18:55 04/08/23 18:50 04/08/23 18:46 04/08/23 18:45 04/08/23 18:40 04/08/23 18:35 04/08/23 18:30 04/08/23 18:30 04/08/23 18:30 04/08/23 18:30 04/08/23 18:25 04/08/23 18:20 Supervising Physician <Shandra Bonilla MD - Last Filed: 04/09/23 07:58> Co-Signing Physician Notes Resident Physician Supervision Note: I interviewed and examined the patient. Discussed with Dr. Bartlett and agree with findings and plan as documented in the note. Any exceptions or clarifications are listed here: POD1 s/p pLTCS c/b PPH. Overnight, had cbc at midnight that showed appropriate drop given ebl and given 1u prbc. This am, pt feels much less lightheaded and less pale after 1u, cbc 6.9 this AM and I think appropriate as the midnight cbc was not equilibrated and did get 1u. VSS, incision c/d/i. Will see how pt does throughout the day, may need second unit given she was anemic to start as well. Continue routine pp care, await void and ambulation Documented By: Shandra Bonilla MD Resident Activity Tracking <Jessica Bartlett DO - Last Filed: 04/09/23 06:21> Resident Involvement: Resident Care Provided Care Provided: OB Delivery
--- NOTE | 2023-04-09 06:24 | Obstetrical Progress Note ---
Date of Service April 09, 2023 Assessment & Plan (1) care following delivery: Patient is a 22 y/o female who is PPD#1 following primary low transverse at 37 5/7 weeks. Overall, patient feels well today. She has not yet ambulated, had any solid intake, or passed gas post . Plan is to continue to assist patient with ambulation this morning, see how she tolerates intake, and monitor until she is able to void gas. She will meet with a lactational financial planning consultant regarding . Anticipate discharge 48-72 hours after . After discharge will have a 6 week follow-up with Dr. Bonilla. Subjective Patient is a 22y/o female who is PPD#1 following primary low transverse at 37 5/7 weeks due to preeclampsia without severe features and lack of progress beyond 4-5cm for 12hrs post induction. Pt states that she is overall feeling well this morning. She does not feel any cramping pain with her pain management. Patient states that she has not ambulated since the and will try to do so this morning. She has been urinating on the catheter. Patient has not had any solid intake since the C- section and she has also not passed any gas since. She has been drinking fluids such as water and juice and is tolerating fluid intake well. She is currently bottlefeeding, but states that she would like to start breastfeeeding after meeting the lactational financial planning consultant this morning. Patient has some post- bleeding/spotting that is improving, especially since the clot removal yesterday.She no longer has any gushing of blood. She has no questions or complaints at this time. Constitutional: no fever, no chills or no sweats Respiratory: no dyspnea Cardiovascular: no chest pain or no palpitations Breast: no breast pain Genitourinary (female): no dysuria Neurologic: no headache(s) no changes in vision, no headaches Physical Exam General: Alert, oriented. No acute distress. Cardiac: Regular rate and rhythm, no murmurs, rubs, or gallops. Respiratory: Clear to auscultation bilaterally, no wheezes/rales/rhonchi. No increased work of breathing. Symmetrical chest rise. No respiratory distress. Abdomen: Soft, slightly tender, nondistended. Bowel sounds present. Uterus: Surgical scar clean and healing well. Lower extremities: No lower extremity edema or swelling. No deep calf pain. Results & Data Vital Signs (Past 12 Hours) Vital Signs Temp Pulse Pulse Resp BP BP Pulse Ox 04/09/23 04:45 36.8 C 105 H 18 107/66 97 04/09/23 03:45 37 C 102 H 18 123/73 98 04/09/23 03:15 37 C 91 H 18 114/74 98 04/09/23 03:15 18 98 04/09/23 03:15 37 C 91 H 18 114/74 98 04/09/23 03:00 37.2 C 90 18 111/66 99 04/09/23 02:45 36.8 C 97 H 16 134/76 98 04/09/23 02:20 18 98 04/09/23 01:10 18 97 04/09/23 00:15 18 98 04/08/23 23:40 37 C 96 H 18 121/83 98 04/08/23 23:40 18 98 04/08/23 23:17 104 H 128/88 04/08/23 23:12 120 H 99 04/08/23 23:07 112 H 96 04/08/23 23:02 97 04/08/23 23:02 103 H 04/08/23 23:02 100 H 133/90 04/08/23 22:57 102 H 98 04/08/23 22:52 123 H 98 04/08/23 22:48 124 H 91 04/08/23 22:47 113 H 100 04/08/23 22:46 125 H 138/96 04/08/23 22:45 36.5 C 16 04/08/23 22:42 115 H 94 04/08/23 22:37 122 H 95 04/08/23 22:36 113 H 143/93 H 90 04/08/23 22:32 130 H 100 04/08/23 22:27 124 H 99 04/08/23 22:26 125 H 146/103 H 04/08/23 22:25 124 H 89 L 04/08/23 22:22 126 H 100 04/08/23 22:17 133 H 100 04/08/23 22:16 129 H 162/104 H 04/08/23 22:15 16 04/08/23 22:12 138 H 100 04/08/23 22:07 141 H 100 04/08/23 22:06 129 H 153/100 H 04/08/23 22:02 132 H 100 04/08/23 21:57 157 H 100 04/08/23 21:56 150 H 154/97 H 04/08/23 21:52 127 H 100 04/08/23 21:51 125 H 92 04/08/23 21:47 142 H 97 04/08/23 21:46 150 H 158/102 H 04/08/23 21:45 36.5 C 16 04/08/23 21:45 36.5 C 16 04/08/23 21:42 150 H 99 04/08/23 21:37 147 H 100 04/08/23 21:36 142 H 148/79 H 04/08/23 21:35 16 04/08/23 21:34 136 H 90 04/08/23 21:32 149 H 98 04/08/23 21:27 150 H 98 04/08/23 21:26 148 H 134/78 94 04/08/23 21:25 16 04/08/23 21:22 149 H 98 04/08/23 21:20 144 H 133/89 93 04/08/23 21:17 160 H 98 04/08/23 21:15 16 04/08/23 21:12 144 H 96 04/08/23 21:10 140 H 93 04/08/23 21:07 158 H 99 04/08/23 21:06 150 H 124/78 04/08/23 21:05 16 04/08/23 21:04 142 H 92 04/08/23 21:02 154 H 99 04/08/23 21:00 136 H 139/81 04/08/23 20:57 144 H 99 04/08/23 20:55 16 04/08/23 20:53 145 H 87 L 04/08/23 20:52 151 H 98 04/08/23 20:47 135 H 97 04/08/23 20:45 36.6 C 18 04/08/23 20:42 153 H 135/85 96 04/08/23 19:19 108 H 97 04/08/23 19:16 110 H 159/97 H 04/08/23 19:14 108 H 96 04/08/23 19:00 36.6 C 16 04/08/23 19:00 115 H 20 158/92 H 04/08/23 18:55 129 H 97 04/08/23 18:50 119 H 98 04/08/23 18:46 122 H 159/103 H 04/08/23 18:45 113 H 98 04/08/23 18:40 85 97 04/08/23 18:35 75 99 04/08/23 18:30 20 04/08/23 18:30 20 04/08/23 18:30 88 04/08/23 18:30 93 H 145/89 H 98 04/08/23 18:25 94 H 96 04/08/23 18:20 84 98 O2 Del Method 04/09/23 04:45 04/09/23 03:45 04/09/23 03:15 Room Air 04/09/23 03:15 04/09/23 03:15 04/09/23 03:00 04/09/23 02:45 04/09/23 02:20 04/09/23 01:10 04/09/23 00:15 04/08/23 23:40 Room Air 04/08/23 23:40 04/08/23 23:17 04/08/23 23:12 04/08/23 23:07 04/08/23 23:02 04/08/23 23:02 04/08/23 23:02 04/08/23 22:57 04/08/23 22:52 04/08/23 22:48 04/08/23 22:47 04/08/23 22:46 04/08/23 22:45 04/08/23 22:42 04/08/23 22:37 04/08/23 22:36 04/08/23 22:32 04/08/23 22:27 04/08/23 22:26 04/08/23 22:25 04/08/23 22:22 04/08/23 22:17 04/08/23 22:16 04/08/23 22:15 04/08/23 22:12 04/08/23 22:07 04/08/23 22:06 04/08/23 22:02 04/08/23 21:57 04/08/23 21:56 04/08/23 21:52 04/08/23 21:51 04/08/23 21:47 04/08/23 21:46 04/08/23 21:45 04/08/23 21:45 04/08/23 21:42 04/08/23 21:37 04/08/23 21:36 04/08/23 21:35 04/08/23 21:34 04/08/23 21:32 04/08/23 21:27 04/08/23 21:26 04/08/23 21:25 04/08/23 21:22 04/08/23 21:20 04/08/23 21:17 04/08/23 21:15 04/08/23 21:12 04/08/23 21:10 04/08/23 21:07 04/08/23 21:06 04/08/23 21:05 04/08/23 21:04 04/08/23 21:02 04/08/23 21:00 04/08/23 20:57 04/08/23 20:55 04/08/23 20:53 04/08/23 20:52 04/08/23 20:47 04/08/23 20:45 04/08/23 20:42 04/08/23 19:19 04/08/23 19:16 04/08/23 19:14 04/08/23 19:00 04/08/23 19:00 04/08/23 18:55 04/08/23 18:50 04/08/23 18:46 04/08/23 18:45 04/08/23 18:40 04/08/23 18:35 04/08/23 18:30 04/08/23 18:30 04/08/23 18:30 04/08/23 18:30 04/08/23 18:25 04/08/23 18:20
[2023-04-09 06:32] LABS: Basophils # (auto) 0.03 K/uL (0.00-0.20); Basophils % (auto) 0.1 %; Immature Granulocytes # (auto) 0.15 K/uL (0.01-0.20); Immature Granulocytes % (auto) 0.7 %; Lymphocytes # (auto) 2.56 K/uL (1.20-3.40); Lymphocytes % (auto) 11.3 %; Monocytes # (auto) 1.21 K/uL (0.11-0.59); Monocytes % (auto) 5.4 %; Neutrophils # (auto) 18.63 K/uL (1.40-6.50); Neutrophils % (auto) 82.5 %; Polychromasia 1+; Tear Drop Cells 1+
[2023-04-09] MEDS: SODIUM CHLORIDE 0.9% 1,000 ML IV SCH (07:21)
[2023-04-09] MEDS: MoRPHine SULFATE PF 1 MG/ML 10 ML AMP/VIAL EPI ONE (07:21)
[2023-04-09] MEDS: DIPHTHER/TETAN/PERTUS Vaccine (Tdap, Adol/Adult) 0.5mL IM ONE (07:22)
[2023-04-09] MEDS: FERROUS SULFATE 325 MG TAB PO SCH (08:54)
[2023-04-09] MEDS: PRENATAL VITAMIN 1 TAB PO SCH (08:54)
[2023-04-09] MEDS: LACTATED RINGER'S 1,000 ML IV SCH (09:59)
[2023-04-09] MEDS: MEASLES, MUMPS & RUBELLA VIRUS VACCINE (MMR) VIAL SQ ONE (11:30)
[2023-04-09] MEDS: MEASLES, MUMPS & RUBELLA VIRUS VACCINE (MMR) VIAL ONE (12:14)
[2023-04-09] MEDS ORDERED: diphenhydrAMINE 50 MG/ML VIAL IV PRN (13:25)
[2023-04-09] MEDS ORDERED: ONDANSETRON INJ 2 MG/ML 2 ML VIAL IV PRN (13:25)
[2023-04-09] MEDS ORDERED: KETOROLAC 30 MG/ML VIAL IV PRN (13:25)
[2023-04-09] MEDS ORDERED: PROMETHAZINE HCL 25 MG in SODIUM CHLORIDE 0.9% 50 ML IV PRN (13:25)
[2023-04-09] MEDS ORDERED: diphenhydrAMINE Capsule 25 MG CAP PO PRN (13:25)
[2023-04-09] MEDS: IBUPROFEN 600 MG TAB PO PRN (17:33)
[2023-04-09] MEDS: oxyCODONE/ACETAMINOPHEN 5mg/325mg TAB PO PRN (18:04)
[2023-04-09] MEDS: bisacodyL 5 MG TABEC PO SCH (20:45)
[2023-04-10 06:40] LABS: Hemoglobin 5.7 g/dl (12.0-16.0)
--- NOTE | 2023-04-10 06:51 | Obstetrical Progress Note ---
Date of Service <Jessica Wood DO Dhruv - Last Filed: 04/10/23 07:10> April 10, 2023 Assessment & Plan <Jessica Wood DO Dhruv - Last Filed: 04/10/23 07:10> (1) care following delivery: (2) Gestational diabetes mellitus (GDM) affecting , antepartum: (3) Preeclampsia: Trimester: third trimester Qualified Code(s): O14.93 - Unspecified pre-eclampsia, third trimester (4) hemorrhage: Plan Overall doing well, ambulating, voiding, tolerating diet. Pain well controlled with ibuprofen and percocet Routine care; OOB, ambulation, continue regular diet. Hgb this morning 5.7, so will transfuse 2 more units PRBCs today and recheck H&H later. Anticipate discharge 48-72 hours after c section delivery, maybe tomorrow. After discharge will have 6 week follow-up with Dr. Bonilla. <Sun Frost MD, FACOG - Last Filed: 04/10/23 08:00> (1) care following delivery: (2) Gestational diabetes mellitus (GDM) affecting , antepartum: (3) Preeclampsia: (4) hemorrhage: Subjective <Jessica Wood DO Dhruv - Last Filed: 04/10/23 07:10> Pt is a 22 y/o female who is POD#2 following delivery at 37 weeks. complicated by GDM, preeclampsia w/o severe features, Delivery complicated by PPH s/p cytotec and Hemabate, got 1 unit PRBCs. Today, pt states she feels like she is overall doing good, better than yesterday. She states she has been up moving around during the day, voiding, and tolerating oral intake. She has been passing gas. Her lochia is imporving and her pain has also improved and is mild and relieved well with ibuprofen and percocet. She has been breast feeding and states she is struggling with it a bit, so she is hoping to get some help with feeding throughout the day today. Otherwise, no questions or complaints at this time. Constitutional: no fever, no chills or no sweats Respiratory: no dyspnea Cardiovascular: no chest pain or no palpitations Breast: no breast pain Genitourinary (female): no dysuria Neurologic: no headache(s) no changes in vision, Physical Exam <Jessica Bartlett DO - Last Filed: 04/10/23 07:10> General: Alert, oriented. No acute distress. Cardiac: Regular rate and rhythm, no murmurs, rubs, or gallops. Respiratory: Clear to auscultation bilaterally, no wheezes/rales/rhonchi. No increased work of breathing. Symmetrical chest rise. No respiratory distress. Abdomen: Soft, nontender, nondistended. Bowel sounds present. Uterus: Uterine fundus firm, palpable 3 cm below the umbilicus. Surgical scar clean and healing well still. No surrounding erythema or drainage. Lower extremities: No lower extremity edema or swelling. No deep calf pain. Results & Data <Jessica Bartlett DO - Last Filed: 04/10/23 07:10> Vital Signs (Past 12 Hours) Vital Signs Temp Pulse Resp BP Pulse Ox O2 Del Method 04/09/23 23:05 36.8 C 80 18 106/67 96 Room Air 04/09/23 19:38 36.9 C 88 18 124/82 Supervising Physician <Sun Frost MD, FACOG - Last Filed: 04/10/23 08:00> Co-Signing Physician Notes Resident Physician Supervision Note: I was present with Dr. Bartlett during the history and exam. I discussed the case with the resident and agree with the findings and plan as documented in the note. Any exceptions or clarifications are listed here: stable, tolerating walking, eating, voiding, +flatus. not dizzy or lightheaded but does have hgb this am of 5. rec transfuse 2 u prbc and pt agrees. she does not have evidence of ongoing bleeding. ff 2 down nt, incision c/d/i, nt calves. she does need to use scds while in bed and reminded of risk of dvt. cont current care. /rhpos/ri. will recheck hgb after 4hr from 2 units. routine care. Documented By: Sun Frost MD, FACOG Resident Activity Tracking <Jessica Bartlett DO - Last Filed: 04/10/23 07:10> Resident Involvement: Resident Care Provided Care Provided: OB Delivery
[2023-04-10] MEDS ORDERED: SODIUM CHLORIDE 0.9% 250 ML IV PRN ×3 (06:56→07:05)
[2023-04-10] MEDS: oxyCODONE HCL IR 5 MG TAB (IMMEDIATE RELEASE) PO PRN (07:56)
[2023-04-10] MEDS: ACETAMINOPHEN 1,000 MG/100 ML VIAL IV STA (07:57)
[2023-04-10] MEDS: diphenhydrAMINE 50 MG/ML VIAL IV STA (07:57)
[2023-04-10 18:23] LABS: Hemoglobin 8.2 g/dl (12.0-16.0)
[2023-04-10] MEDS ORDERED: bisacodyL 10 MG SUPP PR PRN (20:43)
--- NOTE | 2023-04-11 06:57 | Obstetrical Progress Note ---
Date of Service <Jessica Wood Dhruv - Last Filed: 04/11/23 06:57> April 11, 2023 Assessment & Plan <Jessica Antonioharrypeter - Last Filed: 04/11/23 06:57> (1) care following delivery: (2) Gestational diabetes mellitus (GDM) affecting , antepartum: (3) Preeclampsia: Trimester: third trimester Qualified Code(s): O14.93 - Unspecified pre-eclampsia, third trimester (4) hemorrhage: Plan Continues to do well, has had BM and is ambulating and tolerating diet without issues Pain well controlled with ibuprofen and percocet Routine care; OOB, ambulation, continue regular diet. Hgb s/p 2 units yesterday 8.2. Pt asymptomatic and appears more lively today. Anticipate discharge 48-72 hours after c section delivery, today. After discharge will have 6 week follow-up with Dr. Bonilla. <Kamran Plata MD, FACOG - Last Filed: 04/11/23 07:37> (1) care following delivery: (2) Gestational diabetes mellitus (GDM) affecting , antepartum: (3) Preeclampsia: (4) hemorrhage: Subjective <Jessica Wood Dhruv - Last Filed: 04/11/23 06:57> Pt is a 22 y/o female who is POD#3 following delivery at 37 weeks. complicated by GDM, preeclampsia w/o severe features, Delivery complicated by PPH s/p cytotec and Hemabate, s/p 3 units PRBCs. Today, pt states she feels she is doing really well. She has been up moving around and has not felt dizzy or lightheaded, she is tolerating diet, and her bleeding is minimal. She states she had a BM yesterday and has not been having any issues with voiding. She states she is still getting some cramps but that it is not too bad anymore. She continues to bottle feed. No questions or acute concerns at this time, but states she would really like to go home today. Constitutional: no fever, no chills or no sweats Respiratory: no dyspnea Cardiovascular: no chest pain or no palpitations Breast: no breast pain Genitourinary (female): no dysuria Neurologic: no headache(s) no changes in vision, Physical Exam <Jessica Bartlett DO - Last Filed: 04/11/23 06:57> General: Alert, oriented. No acute distress. Cardiac: Regular rate and rhythm, no murmurs, rubs, or gallops. Respiratory: Clear to auscultation bilaterally, no wheezes/rales/rhonchi. No increased work of breathing. Symmetrical chest rise. No respiratory distress. Abdomen: Soft, nontender, nondistended. Bowel sounds present. Uterus: Uterine fundus firm, palpable 4 cm below the umbilicus. Surgical scar clean and healing well. Lower extremities: No lower extremity edema or swelling. No deep calf pain. Results & Data <Jessica Bartlett DO - Last Filed: 04/11/23 06:57> Vital Signs (Past 12 Hours) Vital Signs Temp Pulse Resp BP Pulse Ox O2 Del Method 04/11/23 00:04 36.6 C 67 18 118/75 95 Room Air 04/10/23 19:25 36.6 C 96 H 18 124/80 98 Room Air Supervising Physician <Kamran Plata MD, FACOG - Last Filed: 04/11/23 07:37> Co-Signing Physician Notes Resident Physician Supervision Note: I was present with Dr. Bartlett during the history and exam. I discussed the case with the resident and agree with the findings and plan as documented in the note. Any exceptions or clarifications are listed here: [None] Documented By: Kamran Plata MD, FACOG Resident Activity Tracking <Jessica Bartlett DO - Last Filed: 04/11/23 06:57> Resident Involvement: Resident Care Provided Care Provided: OB Delivery
--- NOTE | 2023-04-15 10:09 | Coding Query ---
ANEMIA To promote full compliance with coding requirements relating to patient care, physician participation is requested in all cases of curriculum writer uncertainty. Please assist us with the question(s) below: Coding Question(s): The record reflects the following clinical findings: cbc 6.4, h/h 9.4, blood tranfusions If these findings are indicative of anemia, please specify the known or suspected type by placing an "X" within the parenthesis (x). If other, please document type. Examples are: ( ) Acute blood loss anemia (X) Acute Postoperative blood loss anemia ( ) Acute postoperative anemia due to dilutional fluids ( ) Anemia, unspecified or other ( ) Other: (please specify) Thank you Lawanda KINGSLEY
--- NOTE | 2023-04-17 10:51 | Discharge Summary ---
Date of Service April 17, 2023 Admission HPI Per Admitting Provider Patient is a 22yowf with iup at 37 4/7 weeks . She presented to the office today without complaints. INitial blood pressure was 156/88 with a repeat in 10 min of 162/88. Was sent to labor and delivery for bp monitoring. INitial blood pressure here was 150s/90s. Labs all normal except pro/bridge painter helper ratio of 0.4. She denies any s/s of pet. Notes no contractions/lof/vb. Notes good fm. Patient did have an elevated blood pressure on 03/06 of 144/86. During observation, she had an isolated blood pressure of 170/95 but mostly in the 140s/90s. complications as below. Of note, she was in the IUGR protocol when she had diagnosis of iugr made on a growth ultrasound done for a new diagnosis of GDM--efw 5% and AC 8%. This was at 30 weeks on 02/19. She remained in the protocol until ultrasound done 03/17 showed efw 11%, AC 30%. this was at 34 4/7 weeks. She had another dvp that was normal the following week. Her next growth us for GDM would have been at 38 weeks. 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 [place]) - rec echo - per peds cardio: OK for delivery at [facility] - peds cardio followup within first 2w of life *Growth US Q 4 wks, *Weekly NST's in 3rd trimester GDM w/28wk glucola *Begin monthly Growth US's IUGR - resolved at 34 wks *Twice weekly NST/DVP@Dx *Weeklyl doppler@Dx *Growth US Q4wk @Dx *Deliver [id number] (unless abnml flow) *Deliver 37wks (less than 3rd%) OB Labs: Blood Type O Positive 09/19/22 Antibody Screen NEGATIVE 09/19/22 Hemoglobin 9.2 g/dl (12.0-16.0) L 04/01/23 Hematocrit 28.5 % (37.0-47.0) L 04/01/23 Mean Corpuscular Volume 84.1 fL (80.0-100.0) 04/01/23 Platelet Count 296 K/uL (130-400) 04/01/23 Rubella IgG Antibody Non Immune (Immune) L 09/19/22 Rapid Plasma Reagin Nonreactive (Nonreactive) 09/19/22 Hepatitis B Surface Antigen. NON-REACTIVE (NON-REACTIVE) 09/19/22 Hepatitis C Antibody (EIA) NON-REACTIVE (NON-REACTIVE) 09/19/22 HIV (1&2) Ag and Ab Confirmation NON-REACTIVE (NON-REACTIVE) 09/19/22 Glucose 1 Hour 50 gm Load 163 mg/dl (70-130) H 02/05/23 OB Optional Labs: Chlamydia trachomatis RNA Not Detected (NotDetected) 09/19/22 Neisseria gonorrhoeae RNA Not Detected (NotDetected) 09/19/22 Thyroid Stimulating Hormone (TSH) 1.020 uIu/ml (0.510-4.91) 01/24/20 Labs Reviewed: cfdna-low risk--mln GBS pending and done today. Discharge Data Consultations 04/07/23 17:35 Consult Anesthesiology Stat Procedures Performed Operation Date: 04/08/23 18:55 Actual Procedures p Primary Section. Live male child @1955 - Shandra Bonilla MD Hospital Course (1) care following delivery: (2) Gestational diabetes mellitus (GDM) affecting , antepartum: (3) Preeclampsia: (4) hemorrhage: Plan 22 yo G1 at 37 5/7 wga presented for routine OB visit and noted to have elevated BPs so sent to L&D for further monitoring. During evaluation, she met criteria for pre-eclampsia without severe features and recommended for induction given GA. Induction was begun with cisse bulb and pitocin. Following cisse bulb expulsion, she underwent srom and received an epidural for pain control. Pitocin continued to be titrated with IUPC placed for more accurate monitoring. However, despite adequate contractions, SVE did not progress beyond 4-5cm for 12hrs. She was counseled regarding options and desired to proceed with above procedure. In the immediate course, she experienced a PPH of additoinal 500cc ebl requiring hemabate and cytotec. She had a low starting hemoglobin and due to the acute blood loss anemia noted on f/u h/h, she was transfused 1u and felt better. On POD2, cbc appeared to have equilibrated and still low so given 2u. She remained stable and was discharged home on POD3 Coding Level of Care Code None Diagnoses care following delivery Z39.2 Gestational diabetes mellitus (GDM) affecting , antepartum O24.419 Pre-eclampsia in third trimester O14.93 Trimester: third trimester hemorrhage O72.1
== END 2023-04-11 11:55 | disposition home or self-care (01) | DRG 787 ==
LOC: OPB 14:16 → 4S1 14:19 → 4E2 04-08 23:53
DX: O14.94 Unspecified pre-eclampsia, complicating childbirth; O24.420 Gestational diabetes mellitus in childbirth, diet controlled; Z3A.37 37 weeks gestation of pregnancy; Z37.0 Single live birth; O99.824 Streptococcus B carrier state complicating childbirth; O99.03 Anemia complicating the puerperium; D62 Acute posthemorrhagic anemia; O72.1 Other immediate postpartum hemorrhage